=== PATIENT | female | born 1990 | race Caucasian/White ===

== ENCOUNTER 2017-10-07 09:53 | Inpatient (IN) | payer BC ==
[~2017-10-07] VITALS: Ht 157.5 cm; Wt 55.0 kg
[2017-10-07 09:56] VITALS: BP 106/68; PULSE 104; RESP 22; TEMP 98.7; O2SAT 99
[2017-10-07] MEDS ORDERED: SODIUM CHLOR 0.9% 1000 ML INJ 1,000 ML IV SCH ×2 (11:25→20:00)
[2017-10-07] MEDS ORDERED: MORPHINE SULFATE 4 MG/ML INJ IV PUSH ONE (11:30)
[2017-10-07] MEDS ORDERED: SODIUM CHLORIDE 0.9% FLUSH 10 ML FLUSH IV FLUSH PRN ×2 (11:30→18:00)
[2017-10-07] MEDS ORDERED: DEXAMETHASONE SOD PHOS 20 MG/5 ML VIAL IV PUSH ONE (11:30)
--- NOTE | 2017-10-07 11:59 | PD ---
Data Data Last Documented VS Vital Signs Date Time Temp Pulse Resp B/P (MAP) Pulse Ox O2 Delivery O2 Flow Rate FiO2 10/07/17 09:56 98.7 104 22 106/68 (81) 99 Orders Orders Complete Blood Count With Diff (10/07/17 11:25) Comprehensive Metabolic Panel (10/07/17 11:25) Lactic Acid (10/07/17 11:25) Prothrombin Time / Inr (Pt) (10/07/17 11:25) Act Partial Throm Time (Ptt) (10/07/17 11:25) Urinalysis - C+S If Indicated (10/07/17 11:25) Iv Access Insert/Monitor (10/07/17 11:25) Ecg Monitoring (10/07/17 11:25) Oximetry (10/07/17 11:25) NPO (10/07/17 11:25) Morphine Inj (Morphine Inj) (10/07/17 11:30) Sodium Chlor 0.9% 1000 Ml Inj (Ns 1000 M (10/07/17 11:25) Sodium Chloride 0.9% Flush (Ns Flush) (10/07/17 11:30) Chest, Single Ap (10/07/17 11:25) Ct Soft Tiss Neck W Iv Cont (10/07/17 11:25) Dexamethasone Inj (Decadron Inj) (10/07/17 11:30) Ed Urine Pregnancytest Poc (10/07/17 11:27) Labs Laboratory Tests Test 10/07/17 11:45 MDM Supervised Visit with YOCASTA: Yes Narrative Course The history, exam, and medical decision-making in the associated mid-level provider note were completed with my assistance. I reviewed and agree with the findings presented. I attest that I had a [id number] encounter with the patient on the same day, and personally performed and documented my assessment and findings in the medical record. *My assessment and Findings: 27-year-old woman with asymmetric swelling in the left side of her throat this is consistent with lymphadenopathy the left. She looks well. She states she was around a cat but the swelling started before that. She had cat scratch disease in the past. Is otherwise healthy. She has Crohn's disease. No other medical history. No definite sick contacts. No pharyngitis symptoms. Pain with swallowing and severe pain at baseline, no breathing or respiratory difficulties. No definite fevers although she has low-grade fever here. On exam she is a lot of tenderness and a swollen gland in the anus is probably lymphadenitis, possibly cat scratch. She looks well. Will check labs, CT imaging, steroids, likely antibiotics and outpatient follow-up. Rod Dillon MD October 07, 2017 11:59
--- NOTE | 2017-10-07 12:02 | PD ---
HPI Chief Complaint: Edema Time Seen by Provider: 11:23 Travel History International Travel<30 days: No Contact w/Intl Traveler<30days: No Traveled to known affect area: No History of Present Illness HPI 27-year-old female presents emergency department with approximately 1- 1/2 week history of left sided neck pain and swelling, which he describes as a gland, that has gotten progressively worse in the last 72 hours. Patient denies significant fever, but has pain with swallowing, however she is speaking in full sentences. Patient has had a recent exposure to kitten although she states the swelling was there prior to that exposure. She denies dental pain, or upper respiratory symptoms. She has no sore throat. She had her tonsils removed at 14. She has no chest pain or shortness of breath. Pain is currently 10 out of 10 and worse with movement or palpation of the area. She denies drug use. She denies . She has no known drug allergies. PFSH Past Medical History ?: Not LMP: 09/16/17 Social History Alcohol Use: Yes Tobacco Use: No Substance Use: No Allergies-Medications (Allergen,Severity, Reaction): Coded Allergies: No Known Allergies (Unverified , 10/07/17) Review of Systems Except as stated in HPI: all other systems reviewed are Neg General / Constitutional: No: Fever Eyes: No: Visual changes HENT: Positive: Neck Stiffness, Neck Pain, Masses, No: Headaches, Vertigo, Lightheadedness, Sore Throat, Rhinitis, Rhinorrhea, Congestion, Nosebleed, Gingival Bleeding, Dental Difficulties, Ear Discharge, Earache Cardiovascular: No: Chest Pain or Discomfort Respiratory: No: Cough, Shortness of Breath, Wheezing Gastrointestinal: No: Nausea, Vomiting, Diarrhea, Abdominal Pain Genitourinary: No: Urgency, Frequency, Dysuria Musculoskeletal: No: Pain Skin: No Rash Neurologic: No: Weakness Psychiatric: No: Depression Endocrine: No: Polydipsia Hematologic/Lymphatic: No: Easy Bruising Physical Exam Narrative GENERAL: Patient is very anxious and in moderate distress. SKIN: Warm and dry. Normal color. Normal turgor. No erythema. No rash. HEAD: Atraumatic. Normocephalic. EYES: Pupils equal and round. No scleral icterus. No injection or drainage. ENT: No nasal bleeding or discharge. Mucous membranes pink and moist. Posterior pharynx appears normal without significant swelling, uvula is midline. Airway is patent. NECK: Trachea midline. Patient is tender swollen anterior lymph node on the left side consistent with lymphadenitis. No signs of Willard's angina. CARDIOVASCULAR: Regular rate and rhythm. RESPIRATORY: No accessory muscle use. Clear to auscultation. Breath sounds equal bilaterally. GASTROINTESTINAL: Abdomen soft, non-tender, nondistended. Hepatic and splenic margins not palpable. MUSCULOSKELETAL: Extremities without clubbing, cyanosis, or edema. No obvious deformities. NEUROLOGICAL: Awake and alert. No obvious cranial nerve deficits. Motor grossly within normal limits. Five out of 5 muscle strength in the arms and legs. Normal speech. PSYCHIATRIC: Appropriate mood and affect; insight and judgment normal. Data Data Last Documented VS Vital Signs Date Time Temp Pulse Resp B/P (MAP) Pulse Ox O2 Delivery O2 Flow Rate FiO2 10/07/17 16:15 101 18 112/64 (80) 98 10/07/17 11:45 Room Air 10/07/17 09:56 98.7 Orders Orders Complete Blood Count With Diff (10/07/17 11:25) Comprehensive Metabolic Panel (10/07/17 11:25) Lactic Acid (10/07/17 11:25) Prothrombin Time / Inr (Pt) (10/07/17 11:25) Act Partial Throm Time (Ptt) (10/07/17 11:25) Urinalysis - C+S If Indicated (10/07/17 11:25) Iv Access Insert/Monitor (10/07/17 11:25) Ecg Monitoring (10/07/17 11:25) Oximetry (10/07/17 11:25) NPO (10/07/17 11:25) Morphine Inj (Morphine Inj) (10/07/17 11:30) Sodium Chlor 0.9% 1000 Ml Inj (Ns 1000 M (10/07/17 11:25) Sodium Chloride 0.9% Flush (Ns Flush) (10/07/17 11:30) Chest, Single Ap (10/07/17 11:25) Ct Soft Tiss Neck W Iv Cont (10/07/17 11:25) Dexamethasone Inj (Decadron Inj) (10/07/17 11:30) Ed Urine Pregnancytest Poc (10/07/17 11:27) Azithromycin (Zithromax) (10/07/17 12:45) Iohexol 350 Inj (Omnipaque 350 Inj) (10/07/17 14:24) Ketorolac Inj (Toradol Inj) (10/07/17 15:30) Blood Culture (10/07/17 17:06) Ampicillin-Sulbactam Inj (Unasyn Inj) (10/07/17 17:15) Consult Infectious Disease (10/07/17 ) Consult Ent (10/07/17 ) Labs Laboratory Tests Test 10/07/17 11:45 10/07/17 13:10 White Blood Count 13.3 TH/MM3 Red Blood Count 4.71 MIL/MM3 Hemoglobin 14.0 GM/DL Hematocrit 40.8 % Mean Corpuscular Volume 86.5 FL Mean Corpuscular Hemoglobin 29.7 PG Mean Corpuscular Hemoglobin Concent 34.3 % Red Cell Distribution Width 13.9 % Platelet Count 176 TH/MM3 Mean Platelet Volume 10.2 FL Neutrophils (%) (Auto) 74.8 % Lymphocytes (%) (Auto) 17.8 % Monocytes (%) (Auto) 6.8 % Eosinophils (%) (Auto) 0.2 % Basophils (%) (Auto) 0.4 % Neutrophils # (Auto) 9.9 TH/MM3 Lymphocytes # (Auto) 2.4 TH/MM3 Monocytes # (Auto) 0.9 TH/MM3 Eosinophils # (Auto) 0.0 TH/MM3 Basophils # (Auto) 0.1 TH/MM3 CBC Comment DIFF FINAL Differential Comment Prothrombin Time 10.0 SEC Prothromb Time International Ratio 1.0 RATIO Activated Partial Thromboplast Time 28.9 SEC Blood Urea Nitrogen 8 MG/DL Creatinine 0.86 MG/DL Random Glucose 87 MG/DL Total Protein 7.9 GM/DL Albumin 3.4 GM/DL Calcium Level 8.7 MG/DL Alkaline Phosphatase 80 U/L Aspartate Amino Transf (AST/SGOT) 16 U/L Alanine Aminotransferase (ALT/SGPT) 38 U/L Total Bilirubin 0.2 MG/DL Sodium Level 141 MEQ/L Potassium Level 3.9 MEQ/L Chloride Level 105 MEQ/L Carbon Dioxide Level 27.8 MEQ/L Anion Gap 8 MEQ/L Estimat Glomerular Filtration Rate 80 ML/MIN Lactic Acid Level 0.7 mmol/L Urine Color LIGHT-YELLOW Urine Turbidity CLEAR Urine pH 7.0 Urine Specific [place] 1.009 Urine Protein NEG mg/dL Urine Glucose (UA) NEG mg/dL Urine Ketones 10 mg/dL Urine Occult Blood NEG Urine Nitrite NEG Urine Bilirubin NEG Urine Urobilinogen LESS THAN 2.0 MG/DL Urine Leukocyte Esterase NEG Urine WBC LESS THAN 1 /hpf Urine Squamous Epithelial Cells 3 /hpf Microscopic Urinalysis Comment CULT NOT INDICATED MDM Medical Decision Making Medical Screen Exam Complete: Yes Emergency Medical Condition: Yes Differential Diagnosis Neck pain. Abscess. Lymphadenitis. Possible cat scratch fever. Narrative Course Patient is anxious but appears medically stable. Airway appears stable at time of exam. Labs ordered including CBC, CMP, coagulation studies, urinalysis, urine . CT of the soft tissues of the neck with IV contrast is ordered as well as chest x-ray. IV access is obtained the patient is given 4 mg morphine IV as well as 10 mg Decadron IV. Patient is given a 1000 mL normal saline bolus. Patient is discussed with and examined by Dr. Dillon. CBC shows slight leukocytosis of 13.3. Coagulation studies are unremarkable. CMP is unremarkable. Lactic acid is 0.7. Chest x-ray shows no acute cardiopulmonary process. CT scan shows: CONCLUSION: 1. Extensive inflammatory changes in the left neck with subcutaneous stranding. Abnormal signal is also seen in the anterior muscle belly of the sternocleidomastoid muscle. Findings are characteristic of a cellulitis and regional myositis. 2. Associated adenopathy with enlarged and partially necrotic nodes in the left cervical lymph node chain. 3. Benign-appearing retention cyst in the right maxillary antra. Patient and findings are reviewed with Dr. Lay. Blood cultures are ordered. Patient is given 3 g Unasyn IV. Calls placed to the hospitalist for admission, as well as infectious disease, and ENT consult ordered. Diagnosis Primary Impression: Cellulitis of neck Additional Impressions: Acute lymphangitis of neck Myositis Qualified Codes: M60.9 - Myositis, unspecified Admitting Information Admitting Physician Requests: Observation Condition: Stable Paddy Prince October 07, 2017 12:02
[2017-10-07 12:08] LABS: AUTOMATED NEUTROPHIL # 9.9 TH/MM3 (1.8-7.7); BASOPHIL # 0.1 TH/MM3 (0-0.2); BASOPHIL % 0.4 % (0.0-2.0); EOSINOPHIL % 0.2 % (0.0-4.0); HEMATOCRIT 40.8 % (35.0-46.0); LYMPH % 17.8 % (9.0-44.0); LYMPHOCYTE # 2.4 TH/MM3 (1.0-4.8); MEAN CELL VOLUME 86.5 FL (80.0-100.0); MEAN CORPUSCULAR HEMOGLOBIN 29.7 PG (27.0-34.0); MEAN CORPUSCULAR HGB CONC 34.3 % (32.0-36.0); MEAN PLATELET VOLUME 10.2 FL (7.0-11.0); MONO % 6.8 % (0.0-8.0); MONOCYTE # 0.9 TH/MM3 (0-0.9); NEUT % 74.8 % (16.0-70.0); PLATELET COUNT 176 TH/MM3 (150-450); RED BLOOD COUNT 4.71 MIL/MM3 (4.00-5.30); RED CELL DISTRIBUTION WIDTH 13.9 % (11.6-17.2); WHITE BLOOD COUNT 13.3 TH/MM3 (4.0-11.0)
[2017-10-07 12:25] LABS: ALBUMIN 3.4 GM/DL (3.4-5.0); ALT (GPT) 38 U/L (10-53); AST (GOT) 16 U/L (15-37); BICARBONATE 27.8 MEQ/L (21.0-32.0); BLOOD UREA NITROGEN 8 MG/DL (7-18); CALCIUM 8.7 MG/DL (8.5-10.1); CHLORIDE 105 MEQ/L (98-107); CREATININE 0.86 MG/DL (0.50-1.00); GLOMERULAR FILTRATION RATE 80 ML/MIN (>89); GLUCOSE,RANDOM 87 MG/DL (74-106); SODIUM (NA) 141 MEQ/L (136-145)
[2017-10-07 12:27] LABS: ALKALINE PHOSPHATASE 80 U/L (45-117); TOTAL BILIRUBIN ADULT 0.2 MG/DL (0.2-1.0); TOTAL PROTEIN 7.9 GM/DL (6.4-8.2)
--- NOTE | 2017-10-07 12:42 | RADRPT ---
EXAM DATE: 10/07/2017 12:28 PM EDT AGE/SEX: 27 years / Female INDICATIONS: Difficulty breathing and swollen neck. CLINICAL DATA: This is the patient's initial encounter. Patient reports that signs and symptoms have been present for 2 days and indicates a pain score of 4/10. MEDICAL/SURGICAL HISTORY: None. None. COMPARISON: No prior [facility] exams available for comparison. FINDINGS: A single AP view of the chest demonstrates the lungs to be symmetrically aerated without evidence of mass, infiltrate or effusion. The cardiomediastinal contours are unremarkable. Osseous structures a re intact. CONCLUSION: 1. No acute cardiopulmonary disease. Electronically signed by: Johnny Smith MD 10/07/2017 12:41 PM EDT
[2017-10-07] MEDS: AZITHROMYCIN 250 MG TAB PO SCH (13:02)
[2017-10-07 14:10] LABS: BILIRUBIN, URINE NEG (NEG); BLOOD, URINE NEG (NEG); GLUCOSE,URINE NEG (NEG); KETONE, URINE 10 mg/dL (NEG); NITRITE,URINE NEG (NEG); SQUAMOUS EPITHELIAL CELL URINE 3 /hpf (0-5); URINE COLOR LIGHT-YELLOW (YELLW/STRAW); URINE LEUKOCYTE ESTERASE NEG (NEG)
[2017-10-07] MEDS ORDERED: IOHEXOL 350 MG/ML 10 ML VIAL (for RAD DIAG) IVCONTRAST ONE (14:24)
[2017-10-07] MEDS ORDERED: KETOROLAC TROMETHAMINE 30 MG/ML (IVP) VIAL IV PUSH ONE (15:30)
[2017-10-07 16:15] VITALS: BP 112/64; PULSE 101; RESP 18; O2SAT 98
--- NOTE | 2017-10-07 16:51 | RADRPT ---
EXAM DATE: 10/07/2017 2:30 PM EDT AGE/SEX: 27 years / Female INDICATIONS: Left neck swelling and pain for 1 week CLINICAL DATA: This is the patient's initial encounter. Patient reports that signs and symptoms have been present for 1 week and indicates a pain score of 10/10. MEDICAL/SURGICAL HISTORY: None. None. RADIATION DOSE: 12.80 CTDI (mGy) COMPARISON: No prior [facility] exams available for comparison. TECHNIQUE: Helical acquisition was performed using a multirow detector CT scanner during the adminis tration of 70 ml Omnipaque 350 (iohexol) nonionic water-soluble contrast as a single exam dose. Usi ng automated exposure control and adjustment of the mA and/or kV according to patient size, radiation dose was kept as low as reasonably achievable to obtain optimal diagnostic quality images. FINDINGS: Nasopharynx: The nasopharyngeal airway has a normal configuration. No mucosal thickening or mass is seen. Oropharynx: The intrinsic muscles of the tongue are symmetric. The tonsillar pillars are intact. T he prevertebral soft tissues are not thickened. Larynx: The supraglottic, glottic, and infraglottic structures are intact. Parapharyngeal: The parapharyngeal space is intact. Salivary Glands: The parotid and submandibular glands are intact. Lymph Nodes: Multiple enlarged and partially necrotic lymph nodes are seen in the left anterior cerv ical chain. Thyroid: Homogeneous enhancement without evidence of nodule. Bones: Unremarkable. Post Contrast: No abnormal areas of enhancement seen. Miscellaneous: Extensive edema is identified in subcutaneous tissues of the left neck. This stranding extends into the adjacent sternocleidomastoid muscle as well. CONCLUSION: 1. Extensive inflammatory changes in the left neck with subcutaneous stranding. Abnormal signal is a lso seen in the anterior muscle belly of the sternocleidomastoid muscle. Findings are characteristic of a cellulitis and regional myositis. 2. Associated adenopathy with enlarged and partially necrotic nodes in the left cervical lymph node chain. 3. Benign-appearing retention cyst in the right maxillary antra. Electronically signed by: Jose Dale MD 10/07/2017 4:50 PM EDT
[2017-10-07] MEDS ORDERED: AMPICILLIN-SULBACTAM INJ 3 GM in SODIUM CHLORIDE 0.9% INJ 100 ML IV ONE (17:15)
[2017-10-07] MEDS ORDERED: LACTULOSE SYRUP 20 GM/30 ML CUP PO PRN (18:00)
[2017-10-07] MEDS ORDERED: NALOXONE HCL 0.4 MG/ML AMP IV PUSH PRN ×2 (18:00)
[2017-10-07] MEDS ORDERED: BISACODYL 10 MG SUPP RECTAL PRN (18:00)
[2017-10-07] MEDS ORDERED: MAGNESIUM HYDROXIDE SUSP 30 ML CUP PO PRN (18:00)
[2017-10-07] MEDS ORDERED: MORPHINE SULFATE 2 MG/ML SYRINGE IV PUSH PRN ×3 (18:00)
[2017-10-07] MEDS ORDERED: SENNOSIDES 8.6 MG TAB PO PRN (18:00)
--- NOTE | 2017-10-07 18:59 | HHI.HP ---
[facility] Primary Care Physician No Primary Care Physician Admission Diagnosis Left Neck Cellulitis/Myocitis/Lymphangitis Diagnoses: Travel History International Travel<30 Days: No Contact w/Intl Traveler <30 Da: No Traveled to Known Affected Are: No History of Present Illness 27-year-old female with reported history of Crohn's disease who presents with a three-week history of left neck pain and swelling. It initially started 3 weeks ago, began to get better, and then 1-1/2 weeks ago returned, having become worse in the past 3 days. Pain is described as severe constant left neck pain, nonradiating. Patient denies any sick contacts. She reports difficulty swallowing. She denies any fevers or chills. She does report a 1 day history of feeling short of breath. Denies any chest pain. Denies any nausea or vomiting. Review of Systems Except as stated in HPI: all other systems reviewed are Neg Past Family Social History Past Medical History Patient reports chronic history of Crohn's disease. Past Surgical History Cholecystectomy Tonsillectomy. Adenoidectomy Appendectomy Reported Medications Not on medications. Allergies: Coded Allergies: No Known Allergies (Unverified , 10/07/17) Family History Parents are healthy Social History Non-smoker. Nondrinker. Patient reports acid use 1 month ago. Denies any illicit drugs. Physical Exam Vital Signs Vital Signs Date Time Temp Pulse Resp B/P (MAP) Pulse Ox O2 Delivery O2 Flow Rate FiO2 10/07/17 16:15 101 18 112/64 (80) 98 10/07/17 11:45 100 Room Air 10/07/17 09:56 98.7 104 22 106/68 (81) 99 Physical Exam GENERAL: This is a well-nourished, well-developed patient, who appears to be in pain. She is alert and oriented 3. SKIN: No rashes, ecchymoses or lesions. Cool and dry. HEAD: Atraumatic. Normocephalic. No temporal or scalp tenderness. EYES: Pupils equal round and reactive. Extraocular motions intact. No scleral icterus. No injection or drainage. ENT: Nose without bleeding, purulent drainage or septal hematoma. Throat without erythema, tonsillar hypertrophy or exudate. Uvula midline. Airway patent. NECK: Trachea midline. No JVD. Left neck fullness, no erythema, left anterior cervical fullness, tenderness. CARDIOVASCULAR: Regular rate and rhythm without murmurs, gallops, or rubs. RESPIRATORY: Clear to auscultation. Breath sounds equal bilaterally. No wheezes , rales, or rhonchi. GASTROINTESTINAL: Abdomen soft, non-tender, nondistended. No hepato-splenomegaly , or palpable masses. No guarding. MUSCULOSKELETAL: Extremities without clubbing, cyanosis, or edema. No joint tenderness, effusion, or edema noted. No calf tenderness. Negative Homans sign bilaterally. NEUROLOGICAL: Awake and alert. Cranial nerves II through XII intact. Motor and sensory grossly within normal limits. Five out of 5 muscle strength in all muscle groups. Normal speech. Laboratory Laboratory Tests Test 10/07/17 11:45 10/07/17 13:10 White Blood Count 13.3 Red Blood Count 4.71 Hemoglobin 14.0 Hematocrit 40.8 Mean Corpuscular Volume 86.5 Mean Corpuscular Hemoglobin 29.7 Mean Corpuscular Hemoglobin Concent 34.3 Red Cell Distribution Width 13.9 Platelet Count 176 Mean Platelet Volume 10.2 Neutrophils (%) (Auto) 74.8 Lymphocytes (%) (Auto) 17.8 Monocytes (%) (Auto) 6.8 Eosinophils (%) (Auto) 0.2 Basophils (%) (Auto) 0.4 Neutrophils # (Auto) 9.9 Lymphocytes # (Auto) 2.4 Monocytes # (Auto) 0.9 Eosinophils # (Auto) 0.0 Basophils # (Auto) 0.1 CBC Comment DIFF FINAL Differential Comment Prothrombin Time 10.0 Prothromb Time International Ratio 1.0 Activated Partial Thromboplast Time 28.9 Blood Urea Nitrogen 8 Creatinine 0.86 Random Glucose 87 Total Protein 7.9 Albumin 3.4 Calcium Level 8.7 Alkaline Phosphatase 80 Aspartate Amino Transf (AST/SGOT) 16 Alanine Aminotransferase (ALT/SGPT) 38 Total Bilirubin 0.2 Sodium Level 141 Potassium Level 3.9 Chloride Level 105 Carbon Dioxide Level 27.8 Anion Gap 8 Estimat Glomerular Filtration Rate 80 Lactic Acid Level 0.7 Urine Color LIGHT-YELLOW Urine Turbidity CLEAR Urine pH 7.0 Urine Specific [place] 1.009 Urine Protein NEG Urine Glucose (UA) NEG Urine Ketones 10 Urine Occult Blood NEG Urine Nitrite NEG Urine Bilirubin NEG Urine Urobilinogen LESS THAN 2.0 Urine Leukocyte Esterase NEG Urine WBC LESS THAN 1 Urine Squamous Epithelial Cells 3 Microscopic Urinalysis Comment CULT NOT INDICATED Urine Opiates Screen POS Urine Barbiturates Screen NEG Urine Amphetamines Screen NEG Urine Benzodiazepines Screen NEG Urine Cocaine Screen NEG Urine Cannabinoids Screen POS Date/Time Source Procedure Growth Status 10/07/17 17:25 Blood Peripheral Aerobic Blood Culture Pending Received 10/07/17 17:25 Blood Peripheral Anaerobic Blood Culture Pending Received Result Diagram: 10/07/17 1145 10/07/17 1145 Imaging Last Impressions Neck CT 10/07/17 1125 Signed Impressions: CONCLUSION: 1. Extensive inflammatory changes in the left neck with subcutaneous stranding . Abnormal signal is also seen in the anterior muscle belly of the sternocleido mastoid muscle. Findings are characteristic of a cellulitis and regional myosit is. 2. Associated adenopathy with enlarged and partially necrotic nodes in the lef t cervical lymph node chain. 3. Benign-appearing retention cyst in the right maxillary antra. Chest X-Ray 10/07/17 1125 Signed Impressions: CONCLUSION: 1. No acute cardiopulmonary disease. Caprini VTE Risk Assessment Caprini VTE Risk Assessment: No/Low Risk (score <= 1) Caprini Risk Assessment Model Point Value = 1 Point Value = 2 Point Value = 3 Point Value = 5 Age 41-60 Minor surgery BMI > 25 kg/m2 Swollen legs Varicose veins or History of unexplained or recurrent spontaneous Oral contraceptives or hormone replacement Sepsis (< 1 month) Serious lung disease, including pneumonia (< 1 month) Abnormal pulmonary function Acute myocardial infarction Congestive heart failure (< 1 month) History of inflammatory bowel disease Medical patient at bed rest Age 61-74 Arthroscopic surgery Major open surgery (> 45 min) Laparoscopic surgery (> 45 min) Malignancy Confined to bed (> 72 hours) Immobilizing plaster cast Central venous access Age >= 75 History of VTE Family history of VTE Factor V Leiden Prothrombin [id number] Lupus anticoagulant Anticardiolipin antibodies Elevated serum homocysteine Heparin-induced thrombocytopenia Other congenital or acquired thrombophilia Stroke (< 1 month) Elective arthroplasty Hip, pelvis, or leg fracture Acute spinal cord injury (< 1 month) Prophylaxis Regimen Total Risk Factor Score Risk Level Prophylaxis Regimen 0-1 Low Early ambulation 2 Moderate Order ONE of the following: *Sequential Compression Device (SCD) *Heparin 5000 units SQ BID 3-4 Higher Order ONE of the following medications: *Heparin 5000 units SQ TID *Enoxaparin/Lovenox 40 mg SQ daily (WT < 150 kg, CrCl > 30 mL/min) *Enoxaparin/Lovenox 30 mg SQ daily (WT < 150 kg, CrCl > 10-29 mL/min) *Enoxaparin/Lovenox 30 mg SQ BID (WT < 150 kg, CrCl > 30 mL/min) AND/OR *Sequential Compression Device (SCD) 5 or more Highest Order ONE of the following medications: *Heparin 5000 units SQ TID (Preferred with Epidurals) *Enoxaparin/Lovenox 40 mg SQ daily (WT < 150 kg, CrCl > 30 mL/min) *Enoxaparin/Lovenox 30 mg SQ daily (WT < 150 kg, CrCl > 10-29 mL/min) *Enoxaparin/Lovenox 30 mg SQ BID (WT < 150 kg, CrCl > 30 mL/min) AND *Sequential Compression Device (SCD) Assessment and Plan Assessment and Plan //Sepsis on admission //Left neck cellulitis/myositis/lymphangitis = Leukocytosis, tachycardia = CT neck reviewed = Lactate 0.7. Blood cultures pending. Continue antibiotics as per infectious disease/ENT. Appreciate assistance. //History of acid use 1 month ago. Patient counseled on cessation. Denies IV drug use. Discussed Condition With Patient, nurse, ED physician. Physician Certification 2 Midnight Certification Type: Admission for Inpatient Services Order for Inpatient Services The services are ordered in accordance with Medicare regulations or non- Medicare payer requirements, as applicable. In the case of services not specified as inpatient-only, they are appropriately provided as inpatient services in accordance with the 2-midnight benchmark. Estimated LOS (days): 2 days is the estimated time the patient will need to remain in the hospital, assuming treatment plan goals are met and no additional complications. Post-Hospital Plan: Home Royal Law MD October 07, 2017 18:59
[2017-10-07] MEDS ORDERED: Vancomycin Consult Pharmacy 1 EA OTHER SCH (19:00)
[2017-10-07] MEDS ORDERED: VANCOMYCIN INJ 1,000 MG in SODIUM CHLOR 0.9% 250 ML INJ 250 ML IV ONE (20:00)
[2017-10-07] MEDS: SODIUM CHLORIDE 0.9% FLUSH 10 ML FLUSH IV FLUSH SCH (21:00)
[2017-10-07 21:12] VITALS: BP 120/90; PULSE 100; RESP 16; O2SAT 100
[2017-10-07] MEDS: DEXAMETHASONE SOD PHOS 4 MG/ML VIAL IV PUSH SCH (21:21)
[2017-10-07] MEDS: D5-1/2 NS + KCL 20 MEQ INJ 1,000 ML IV SCH (21:21)
[2017-10-08] MEDS ORDERED: MORPHINE SULFATE 4 MG/ML INJ IV PUSH PRN ×2 (00:45)
[2017-10-08] MEDS: MORPHINE SULFATE 4 MG/ML INJ IV PUSH PRN ×6 (01:02→23:54)
[2017-10-08] MEDS: AMPICILLIN-SULBACTAM INJ 3 GM in SODIUM CHLORIDE 0.9% INJ 100 ML IV SCH ×5 (01:07→23:47)
[2017-10-08 01:52] VITALS: BP 123/86; PULSE 83; RESP 16; O2SAT 100
[2017-10-08] MEDS: D5-1/2 NS + KCL 20 MEQ INJ 1,000 ML IV SCH ×3 (04:00→16:10)
[2017-10-08] MEDS: DEXAMETHASONE SOD PHOS 4 MG/ML VIAL IV PUSH SCH ×5 (06:37→23:46)
[2017-10-08 06:45] VITALS: BP 112/68; PULSE 63; RESP 16; TEMP 99.2; O2SAT 99
[2017-10-08 07:45] LABS: AUTOMATED NEUTROPHIL # 11.9 TH/MM3 (1.8-7.7); BASOPHIL % 0.2 % (0.0-2.0); HEMOGLOBIN 13.1 GM/DL (11.6-15.3); LYMPH % 11.6 % (9.0-44.0); LYMPHOCYTE # 1.7 TH/MM3 (1.0-4.8); MEAN CELL VOLUME 86.2 FL (80.0-100.0); MEAN CORPUSCULAR HGB CONC 33.7 % (32.0-36.0); MEAN PLATELET VOLUME 9.9 FL (7.0-11.0); MONO % 7.5 % (0.0-8.0); MONOCYTE # 1.1 TH/MM3 (0-0.9); NEUT % 80.7 % (16.0-70.0); PLATELET COUNT 182 TH/MM3 (150-450); RED BLOOD COUNT 4.52 MIL/MM3 (4.00-5.30); RED CELL DISTRIBUTION WIDTH 13.6 % (11.6-17.2); WHITE BLOOD COUNT 14.7 TH/MM3 (4.0-11.0)
[2017-10-08] MEDS ORDERED: VANCOMYCIN INJ 750 MG in SODIUM CHLOR 0.9% 250 ML INJ 250 ML IV SCH (08:00)
[2017-10-08 08:10] LABS: ALBUMIN 3.3 GM/DL (3.4-5.0); AST (GOT) 128 U/L (15-37); BICARBONATE 22.8 MEQ/L (21.0-32.0); BLOOD UREA NITROGEN 8 MG/DL (7-18); CALCIUM 9.1 MG/DL (8.5-10.1); CHLORIDE 108 MEQ/L (98-107); CREATININE 0.68 MG/DL (0.50-1.00); GLOMERULAR FILTRATION RATE 105 ML/MIN (>89); GLUCOSE,RANDOM 83 MG/DL (74-106); SODIUM (NA) 140 MEQ/L (136-145)
[2017-10-08 08:29] LABS: ALKALINE PHOSPHATASE 98 U/L (45-117); ALT (GPT) 159 U/L (10-53); TOTAL BILIRUBIN ADULT 0.3 MG/DL (0.2-1.0); TOTAL PROTEIN 7.8 GM/DL (6.4-8.2)
[2017-10-08] MEDS: SODIUM CHLORIDE 0.9% FLUSH 10 ML FLUSH IV FLUSH SCH ×2 (09:00→21:00)
[2017-10-08 09:20] VITALS: BP 108/58; PULSE 65; RESP 18; TEMP 96.5; O2SAT 97
--- NOTE | 2017-10-08 10:27 | HHI.PR ---
Subjective Remarks Patient says that swelling is improving, reports swallowing improved. Denies any chest pain or shortness of breath. Denies nausea or vomiting. Objective Vital Signs Date Time Temp Pulse Resp B/P (MAP) Pulse Ox O2 Delivery O2 Flow Rate FiO2 10/08/17 09:20 96.5 65 18 108/58 (75) 97 10/08/17 06:45 99.2 63 16 112/68 (83) 99 Room Air 10/08/17 01:52 83 16 123/86 (98) 100 Room Air 10/07/17 21:12 100 16 120/90 (100) 100 Room Air 10/07/17 16:15 101 18 112/64 (80) 98 10/07/17 11:45 100 Room Air I/O 10/07/17 10/07/17 10/07/17 10/08/17 10/08/17 10/08/17 07:00 15:00 23:00 07:00 15:00 23:00 Intake Total 1000 ml 100 ml 100 ml Balance 1000 ml 100 ml 100 ml Intake IV Total 1000 ml 100 ml 100 ml # Voids 1 1 Result Diagram: 10/08/17 0730 10/08/17 0730 Objective Remarks GENERAL: Patient lying in bed. Appears comfortable. Alert and oriented 3. SKIN: Warm and dry. HEAD: Normocephalic. EYES: No scleral icterus. No injection or drainage. NECK: Supple, trachea midline. No JVD. Still marketed left anterior cervical swelling, tenderness, however improved from yesterday. CARDIOVASCULAR: Regular rate and rhythm without murmurs, gallops, or rubs. RESPIRATORY: Breath sounds equal bilaterally. No accessory muscle use. GASTROINTESTINAL: Abdomen soft, non-tender, nondistended. MUSCULOSKELETAL: No cyanosis, or edema. BACK: Nontender without obvious deformity. No CVA tenderness. A/P Assessment and Plan //Sepsis on admission //Left neck cellulitis/myositis/lymphangitis = Leukocytosis, tachycardia = CT neck reviewed = Lactate 0.7. Blood cultures pending. Continue antibiotics as per infectious disease/ENT. Appreciate assistance. = 10/08. Blood cultures negative today. Leukocytosis worsening 14.7, however likely secondary to steroids. neck swelling improving. Continue antibiotics. //Transaminitis. = AST 128, ALT 159 no from yesterday. Will check liver ultrasound and hepatitis profile. //History of acid use 1 month ago. Patient counseled on cessation. Denies IV drug use. //Marijuana positive. Cessation counseling provided. Discharge Planning Continues on IV antibiotics for sepsis, left neck cellulitis .pending ID and ENT consultation. Royal Law MD October 08, 2017 10:27
--- NOTE | 2017-10-08 11:34 | RADRPT ---
EXAM DATE: 10/08/2017 11:27 AM EDT AGE/SEX: 27 years / Female INDICATIONS: Increased lab values. CLINICAL DATA: This is the patient's initial encounter. Patient reports that signs and symptoms have been present for 1 day and indicates a pain score of 0/10. MEDICAL/SURGICAL HISTORY: Crohn's disease. Tonsillectomy. Appendectomy. Cholecystectomy. COMPARISON: No prior [facility] exams available for comparison. MEASUREMENTS (cm x cm x cm): Liver:__ 13.2 cm length Common Bile Duct:__ 9mm Right Kidney:__ 10.5 x 5.0 x 4.7 cm FINDINGS: Liver: Normal echotexture without focal lesion or ductal dilatation. Portal Vein: Hepatopedal flow seen in portal vein. Common Duct: No intralumincal mass or stone visualized. Gallbladder: Surgically Absent. Gallbladder Wall: absent Pancreas: The visualized portions are within normal limits Right Kidney: No hydronephrosis, significant mass or stone. Normal echogenicity. Other: None. CONCLUSION: 1. Borderline splenomegaly with spleen measuring 12.6 cm. 2. Otherwise, unremarkable right upper quadrant ultrasound exam. Specifically, no sonographic eviden ce for cholelithiasis or acute cholecystitis. Electronically signed by: Johnny Smith MD 10/08/2017 11:33 AM EDT
[2017-10-08] MEDS: AZITHROMYCIN 250 MG TAB PO SCH (12:07)
--- NOTE | 2017-10-08 12:56 | MB ---
cc: Sung Mann MD DATE: 10/08/2017 REQUESTING PHYSICIAN: Dr. Prince REASON FOR CONSULTATION: Cellulitis/myositis/lymphangitis of the left neck. HISTORY OF PRESENT ILLNESS: This is a 27-year-old white female who presented to the emergency department on 10/07/2017 because of edema of the left side of the neck. The patient notes that about a week and a half ago, she woke up and had a somewhat stiff neck. Subsequently, she developed pain and swelling of the tissue of the left neck and also swelling of the left neck gland. She noticed that it was worsening over the last few days. She was also having difficulty swallowing and was not eating. She denies fevers, but said that she had occasional chills and that she would wake up in drenching night sweats. She has nausea and diarrhea on a daily basis because of underlying Crohn's disease. Her white count was 13.3. A CT scan of the neck was performed and it shows extensive inflammatory changes in the left neck with subcutaneous stranding and also abnormal signal in the anterior muscle belly of the sternocleidomastoid muscle, findings characteristic of cellulitis and regional myositis. Adenopathy with enlarged and partially necrotic nodes in the left cervical lymph node chain is noted as well. The patient notes that she took care of her kitten which she fed 3 days ago. She says that it was a baby kitten with the umbilical cord still in place and that there was no scratch from any cat. She denies IV drug use. Blood cultures were taken and has no growth in 1 day. The patient notes that she had an episode of cat-scratch disease when she was 16 years old. PAST MEDICAL HISTORY: Crohn's disease. Asthma. PAST SURGICAL HISTORY: Tonsillectomy, adenoidectomy, cholecystectomy, appendectomy. ALLERGIES: NO KNOWN DRUG ALLERGIES. MEDICATIONS: 1. Ampicillin/sulbactam. 2. Vancomycin. 3. Morphine sulfate p.r.n. 4. Decadron. SOCIAL HISTORY: The patient denies tobacco use. Occasional rare alcohol use. Denies IV use. Denies illicit drugs. FAMILY HISTORY: Noncontributory. REVIEW OF SYSTEMS: CONSTITUTIONAL: Reports chills. No fever. Positive sweats. HEENT: EYES, NOSE AND THROAT: No headaches. No visual blurring or diplopia. No nasal drainage. A little difficulty swallowing because of pain in the left neck that was worse when she swallowed. NECK: Swelling and pain at the left neck. CARDIOVASCULAR: Denies chest pain or palpitation. RESPIRATORY: Denies cough or shortness of breath. GASTROINTESTINAL: Denies abdominal pain. Positive for nausea and positive for diarrhea. GENITOURINARY: Denies urgency, frequency or dysuria. HEMATOPOIETIC: No easy bruising or bleeding. The patient notes heavy menstrual periods with increased bleeding. GENITOURINARY: Denies urgency, frequency or dysuria. MUSCULOSKELETAL: Pain in the left neck muscles. ENDOCRINE: No polyuria or polydipsia. NEUROLOGIC: Denies problems with coordination. PSYCHIATRIC: No mood alteration. PHYSICAL EXAMINATION: GENERAL: This is a thin, well-developed female in no acute distress. She is awake, alert and oriented. VITAL SIGNS: Temperature 96.5, BP 108/58, respirations 18, heart rate 65. HEENT: Head is atraumatic. Extraocular movements grossly intact. Pupils reactive to light. No icterus. Oropharynx, moist mucosa without lesions. NECK: There is swelling of the left side of the neck which is very tender on palpation. There is a raised, firm area where the swelling is located. There is mild erythema which extends from the left neck and towards about the central aspect of the anterior portion of the neck. HEART: Regular S1 and S2 without murmurs, rubs or gallops. ABDOMEN: Bowel sounds present, soft, no tenderness appreciated. RECTAL: Not performed. EXTREMITIES: No clubbing, cyanosis or edema. SKIN: No rash. NEUROLOGIC: No gross focal findings. PSYCHIATRIC: The patient is calm and cooperative. LABORATORY DATA: WBC 14.7, platelets 182, 80% neutrophils, hemoglobin 13.1, creatinine 0.68. Estimated GFR 105, AST 128, ALT 159, albumin 3.3. IMPRESSION: 1. Cellulitis of the left neck with myositis and lymphadenopathy. The lymph node is reported as necrotic. 2. 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 3. Leukocytosis secondary to cellulitis. 4. Rule out immunosuppression. The other possibility is a noninfectious cause of the lymphangitis and myositis. This is less likely. If there is lack of improvement, a biopsy of the lymph node can be considered. RECOMMENDATIONS: 1. Continue ampicillin/sulbactam. 2. Discontinue the vancomycin. 3. Begin doxycycline 100 mg p.o. q. 12 hours since it appears that the swelling has improved and the doxycycline will cover cat-scratch disease. 4. Obtain HIV testing to check for immunosuppression. 5. I will monitor clinical response to the treatment. Thank you for this consultation. The patient's progress will be monitored and further recommendations will be made upon followup if necessary. MD JAG Engle/GILLES , 12:12 PM , 12:55 PM JAD
[2017-10-08] MEDS: DOXYCYCLINE HYCLATE 100 MG TAB PO SCH ×2 (13:57→21:25)
[2017-10-08 16:00] VITALS: BP 119/74; PULSE 86; RESP 21; TEMP 98; O2SAT 99
[2017-10-08] MEDS ORDERED: ZOLPIDEM TARTRATE 5 MG TAB PO PRN (16:30)
[2017-10-08] MEDS: ONDANSETRON ODT 4 MG TAB PO PRN (18:08)
--- NOTE | 2017-10-08 18:24 | MB ---
cc: Arnold Chu MD, Anthony T MD DATE: 10/08/2017 CHIEF COMPLAINT: Left neck tenderness, pain and swelling. HISTORY OF PRESENT ILLNESS: This is a 27-year-old female who was admitted through the emergency department last night with a complaint of edema and pain to the left side of the neck. She reports that the edema has gone down somewhat, but the left side of the neck is incredibly tender and it is difficult to swallow. She noticed pain most of the night with the left neck and if you touch the left neck, it is very sensitive she said. She is unable to turn her head completely on the left side. She does report some improvement since being admitted. Of note, she did have cat-scratch disease in the past for which she was treated when she was a teenager. She also recently obtained a cat approximately 3 days ago, but she tells me that this started prior to her obtaining the kitten. She does deny any IV drug use. 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 She does not get in the water with the boats. PAST MEDICAL HISTORY: Significant for Crohn's disease and asthma. PAST SURGICAL HISTORY: Tonsillectomy and adenoidectomy, cholecystectomy and appendectomy. ALLERGIES: SHE HAS NO KNOWN DRUG ALLERGIES. MEDICATIONS: She is not currently on any medication. SOCIAL HISTORY: She denies tobacco use or illicit drug use. She does occasionally drink. PHYSICAL EXAMINATION: GENERAL: The patient is alert and oriented x3, in no acute distress. She is resting relatively comfortable in bed. She was getting an abdominal ultrasound when I walked in without much discomfort. HEENT: Nasal exam is within normal limits. Ears clear. Tympanic membranes intact. Oral cavity - oropharynx shows no edema, no masses. No swelling. Flexible laryngoscopy performed at bedside shows normal-appearing oropharynx with some hypertrophy of the lingual tonsils, but no asymmetry. No evidence of uvular deviation. No evidence of tonsillar abscess or peritonsillar abscess. The larynx is widely visualized. Airway is widely patent. NECK: Reveals significant tenderness on the left neck with a level 3 lymphadenopathy that is incredibly tender with only minimal erythema around this. IMAGING STUDIES: CT scan reviewed showed what looks to be a possible necrotic lymph node on the left with some adenopathy noted as well as some myositis and cellulitis of the sternocleidomastoid muscle and surrounding tissue. ASSESSMENT AND PLAN: A patient with what looks to be an infectious process involving the left neck. No obvious abscess for drainage. Would recommend covering for cat-scratch disease, although this is a little less likely since the process started before she obtained the cat. Would also work her up for possible other immunosuppressed such as scrofula which is neck tuberculosis or other unusual instances such as an insect bite. We will defer this to infectious disease. At this time, no surgical intervention. Should she not improve, would recommend ultrasound-guided biopsy of the left neck mass; however, that would not want to be done until the possibility of tuberculosis of the left neck or scrofula was ruled out as that could possibly cause a persistent fistula should a lesion with tuberculosis in it be biopsied. Would recommend continued IV antibiotics, per infectious disease. Arnold Chu MD ATT/SA , 05:31 PM , 06:23 PM
[2017-10-08 20:00] VITALS: BP 109/56; PULSE 80; RESP 16; TEMP 98; O2SAT 100
[2017-10-09] VITALS (7 sets, daily range): BP systolic 90–145; BP diastolic 53–88; PULSE 68–140; RESP 16–21; TEMP 97.2–98.2; O2SAT 96–100
[2017-10-09] MEDS: MORPHINE SULFATE 4 MG/ML INJ IV PUSH PRN (03:33)
[2017-10-09] MEDS ORDERED: diphenhydrAMINE HCL 25 MG CAP PO ONE (04:00)
[2017-10-09] MEDS ORDERED: ONDANSETRON ODT 4 MG TAB PO ONE (05:15)
[2017-10-09] MEDS ORDERED: LORazepam 2 MG/ML VIAL IV PUSH ONE (05:15)
--- NOTE | 2017-10-09 05:44 | HHI.FPPN ---
Addendum to progress note ADDENDUM Reason for addendum: Additonal documentation Additional information S: Art Rogers and Omar were paged at 0433 hours for a Halicat. Drs responded to bedside where Ms Brooks was sweating with body shaking uncontrollably and complaints of loss of sensation in her legs with periodic tachycardia to the 150s and LOPEZ with right-sided photophobia. Pt presented with left neck myositis and lymphadenitis and has a Hx of Crohn's disease. Pt has pain in her left neck and has complaints of pain with neck movement. Pt denies IVDU but has UDS positive for cannabis and admits to smoking pot. Pt used to take xanax PRN for anxiety months ago. Pt was caring for a kitten when she was admitted for myositis/lymphadenitis, and was notified by her boyfriend that the kitten had today and was sad about that prior to current sxs starting. Pt's HR improved to 100 prior to departing the room with cessation of chills and shaking. O: VS: T 98.2 / HR 144 / BP 137/83 / spO2 97% RA Pt HR improved to 100 prior to departing Vital Signs Date Time Temp Pulse Resp B/P (MAP) Pulse Ox O2 Delivery O2 Flow Rate FiO2 10/09/17 00:15 98.0 69 16 110/64 (79) 100 10/08/17 06:45 Room Air GENERAL: Well-nourished, well-developed patient in moderate distress and anxiety with body shaking vs involuntary muscle contractions. SKIN: Warm and dry. HEAD: Normocephalic. Atraumatic. EYES: No scleral icterus. No injection or drainage. Right sided photophobia. EOMI. NECK: TTP, tender to movement with reduced ROM. trachea midline. Lymphadenopathy on left side with swelling. CARDIOVASCULAR: Tachycardic, regular rhythm without murmurs, gallops, or rubs. RESPIRATORY: Breath sounds equal bilaterally. No accessory muscle use. GASTROINTESTINAL: Abdomen soft, TTP around umbilicus, nondistended. No rebound or guarding. EXTREMITIES: No cyanosis, or edema. Well perfused. Reduced sensation in LLE below knee and LUE. NEUROLOGICAL: Awake, alert, and oriented x 3. CN II-XII intact. Reduced sensation in LLE and LUE as above, slurred speech per pt (borderline to examiners), and photophobia as above. A/P: 27YO female with PMHx Crohn's disease with myositis and lymphadenitis of left neck, neck pain with reduced ROM, with left sided decreased sensation and slurred speech, must r/o CVA, SAH, meningitis, cerebral infection, abdominal pain from unknown source. Cannot r/o psychogenic cause. -CT head w and w/o contrast as indicated -Ativan 1 mg IV -Zofran 4mg PO -CT abdomen/pelvis with contrast -Consider LP -Consider psych consult for psychogenic etiology Carlyle Rogers MD R1 October 09, 2017 05:44
[2017-10-09] MEDS: DEXAMETHASONE SOD PHOS 4 MG/ML VIAL IV PUSH SCH ×2 (05:55→11:38)
[2017-10-09] MEDS: AMPICILLIN-SULBACTAM INJ 3 GM in SODIUM CHLORIDE 0.9% INJ 100 ML IV SCH ×2 (05:55→11:34)
--- NOTE | 2017-10-09 05:56 | RADRPT ---
EXAM DATE: 10/09/2017 5:47 AM EDT AGE/SEX: 27 years / Female INDICATIONS: Left arm numbness, slurred speech, and headache. CLINICAL DATA: This is the patient's initial encounter. Patient reports that signs and symptoms have been present for 1 day and indicates a pain score of 5/10. MEDICAL/SURGICAL HISTORY: Gastroesophageal reflux disease. . RADIATION DOSE: 56.35 CTDI (mGy) COMPARISON: No prior [facility] exams available for comparison. TECHNIQUE: CT of the head without contrast. Using automated exposure control and adjustment of the mA and/or kV according to patient size, radiation dose was kept as low as reasonably achievable to ob tain optimal diagnostic quality images. FINDINGS: Cerebrum: The ventricles are normal for age. No evidence of midline shift, mass lesion, hemorrhage or acute infarction. No extraaxial fluid collections are seen. Posterior Fossa: The cerebellum and brainstem are intact. The 4th ventricle is midline. The cerebe llopontine angle is unremarkable. Extracranial: The visualized portion of the orbits is intact. Skull: The calvaria is intact. No evidence of skull fracture. CONCLUSION: 1. Negative noncontrast head CT. Electronically signed by: John Silverman MD 10/09/2017 5:55 AM EDT
--- NOTE | 2017-10-09 05:59 | RADRPT ---
EXAM DATE: 10/09/2017 5:51 AM EDT AGE/SEX: 27 years / Female INDICATIONS: Left sided abdominal pain. CLINICAL DATA: This is the patient's initial encounter. Patient reports that signs and symptoms have been present for 1 day and indicates a pain score of 5/10. MEDICAL/SURGICAL HISTORY: Gastroesophageal reflux disease. None. ORAL CONTRAST: No oral contrast ingested. RADIATION DOSE: 6.70 CTDI (mGy) COMPARISON: No prior [facility] exams available for comparison. TECHNIQUE: Multiple contiguous axial images were obtained through the abdomen and pelvis following b olus infusion of 75 ml Omnipaque 350 (iohexol) nonionic water-soluble contrast as a single exam dos e. No oral contrast ingested. Using automated exposure control and adjustment of the mA and/or kV ac cording to patient size, the radiation dose was kept as low as reasonably achievable to obtain optima l diagnostic quality images. FINDINGS: Lower Lungs: The visualized lower lungs are clear. Liver: The liver has a homogeneous density without space-occupying lesion. Previous cholecystectomy. Mild intrahepatic and extrahepatic no area distention noted, likely reservoir effect after gallbladde r removal. Localized fatty infiltration seen adjacent to the falciform ligament.. Spleen: Homogeneous density without enlargement. Pancreas: Unremarkable without mass or calcification. Kidneys: Normal in size and shape. No evidence of mass or hydronephrosis. Adrenal Glands: Unremarkable. Aorta: The aorta and proximal iliac vessels are grossly unremarkable without aneurysmal dilation. Bowel/Mesentery: The bowel loops are grossly unremarkable. The cecum and sigmoid colon have a normal configuration. Abdominal Wall: Intact. Retroperitoneum: No evidence of adenopathy in the retrocrural, para-aortic, or deep pelvic regions. Bladder: Contours are smooth. Reproductive Organs: No abnormal masses or calcifications seen. Small, generally physiologic amount of free fluid seen in the pelvic cul-de-sac. Nothing loculated or drainable. Inguinal: The inguinal region is unremarkable without evidence of adenopathy. Bony Structures: Unremarkable. CONCLUSION: No acute abnormalities are demonstrated. Electronically signed by: John Silverman MD 10/09/2017 5:58 AM EDT
[2017-10-09] MEDS: D5-1/2 NS + KCL 20 MEQ INJ 1,000 ML IV SCH ×2 (06:02→11:34)
[2017-10-09] MEDS ORDERED: PHARMACY ORDERED LAB ONE (07:45)
[2017-10-09] MEDS: SODIUM CHLORIDE 0.9% FLUSH 10 ML FLUSH IV FLUSH SCH (09:00)
[2017-10-09] MEDS: DOXYCYCLINE HYCLATE 100 MG TAB PO SCH (09:17)
[2017-10-09] MEDS: AZITHROMYCIN 250 MG TAB PO SCH (09:18)
[2017-10-09] MEDS: ONDANSETRON ODT 4 MG TAB PO PRN (09:18)
[2017-10-09] MEDS ORDERED: ACETAMINOPHEN/HYDROcodone 325 MG/5 MG TAB PO PRN (14:30)
--- NOTE | 2017-10-09 14:56 | HHI.PR ---
Subjective Remarks DW with RN. Patient has been very uncooperative, refusing vital signs. Patient tells me she does not know what is going on. More than 15 minutes spent with the patient in the presence of medical student Karen Asif MS4 explaining her current diagnosis, the need for treatment with antibiotics, and potential need for future workup such as biopsy. Patient states she sees no difference in her neck swelling since she presented to the hospital. However per the note yesterday she reported improvement and there was also improvement noted on exam. Objective Vitals Vital Signs Date Time Temp Pulse Resp B/P (MAP) Pulse Ox O2 Delivery O2 Flow Rate FiO2 10/09/17 11:50 97.7 75 18 90/53 (65) 97 10/09/17 08:23 97.2 70 18 108/60 (76) 99 Manual Cuff/Palpation 10/09/17 05:20 98.2 120 20 140/86 (104) 99 145/88 (107) 10/09/17 04:40 97.9 140 21 137/83 (101) 97 10/09/17 04:20 97.3 105 20 128/71 (90) 96 10/09/17 04:00 98.0 70 16 119/80 (93) 100 10/09/17 00:15 98.0 69 16 110/64 (79) 100 10/08/17 20:00 98.0 80 16 109/56 (73) 100 10/08/17 16:00 98.0 86 21 119/74 (89) 99 I/O 10/08/17 10/08/17 10/08/17 10/09/17 10/09/17 10/09/17 07:00 15:00 23:00 07:00 15:00 23:00 Intake Total 100 ml 240 ml 2226 ml Balance 100 ml 240 ml 2226 ml Intake Oral 240 ml 975 ml IV Total 100 ml 1251 ml # Voids 1 4 # Bowel Movements 0 Result Diagram: 10/08/1730 10/08/17 0730 Objective Remarks GENERAL: This is a well-nourished, well-developed patient, in no apparent distress. NECK: Supple, on the left side there is minimal anterior cervical swelling. I do not appreciate any cellulitis. I did not elicit tenderness on palpation. CARDIOVASCULAR: Normal rate and regular rhythm without murmurs, gallops, or rubs. PSYCH: Irritable A/P Assessment and Plan 27-year-old female with: Sepsis on admission Left neck cellulitis/myositis/lymphangitis Leukocytosis, tachycardia CT neck noted above Continue antibiotics as per infectious disease/ENT. Appreciate assistance. If there is lack of improvement, a biopsy of the lymph node can be considered. Continue ampicillin/sulbactam and doxycycline 100 mg p.o. q. 12 hours Transaminitis. AST 128, ALT 159. Liver ultrasound unremarkable, borderline splenomegaly. Hepatitis profile negative - Follow-up LFTs in a.m. Illicit drug use: History of acid use 1 month ago. UDS on admission positive for opiates and marijuana. Patient counseled on cessation. Noncompliance behavior: Extensive counseling provided regarding the treatment. More than 15 minutes spent with the patient in the presence of medical student Karen Asif MS4 explaining her current diagnosis, the need for treatment with antibiotics, and potential need for future workup such as biopsy. Patient states she sees no difference in her neck swelling since she presented to the hospital. However per the note yesterday she reported improvement and there was also improvement noted on exam. She was strongly advised to comply with treatment. Kaity Hill MD October 09, 2017 14:56
== END 2017-10-09 16:16 | disposition left against medical advice (07) | DRG 872 ==
LOC: NEPD 09:53 → NEDA 17:49 → NEDH 10-08 07:44 → N05B 10-08 14:58
PROVIDERS: ADMIT Family Medicine; ATTEND Family Medicine
DX: A41.9 Sepsis, unspecified organism (principal); A28.1 Cat-scratch disease; K50.90 Crohn's disease, unspecified, without complications; L03.221 Cellulitis of neck; I89.1 Lymphangitis; M60.9 Myositis, unspecified; T38.0X5A Adverse effect of glucocorticoids and synthetic analogues, initial encounter; Z91.19 Patient's noncompliance with other medical treatment and regimen; R13.10 Dysphagia, unspecified; J45.909 Unspecified asthma, uncomplicated; F12.90 Cannabis use, unspecified, uncomplicated; R47.81 Slurred speech; H53.141 Visual discomfort, right eye; R74.0 Nonspecific elevation of levels of transaminase and lactic acid dehydrogenase [LDH]; Z90.49 Acquired absence of other specified parts of digestive tract
CPT/HCPCS: 70450; 70491; 71045; 74177; 76705; 80053; 80074; 80307; 81001; 82550; 82948; 83605; 84703; 85025; 85610; 85730; 87040; 87389; 96361; 96365; 96375; G0475; G8996-GN; G8997-GN; G8998-GN; J0295; J1100; J1885; J2060; J2270; J3370; J3480; J7030; J7050; Q9967

== ENCOUNTER 2018-03-31 04:21 | Observation (INO) ==
[2018-03-31] MEDS ORDERED: Sod Chloride 0.9% Inj 1,000 ML IV.SIG ONE (04:31)
--- NOTE | 2018-03-31 04:41 | ED ---
HPI General Chief Complaint: Abdominal Pain Stated Complaint: Medical Time Seen by Provider: 03/31/18 04:31 Source: patient and EMS Mode of arrival: EMS Limitations: no limitations History of Present Illness HPI narrative: 27-year-old female presents to the emergency department by EMS transport for evaluation of abdominal pain. Patient with nausea vomiting. Upon EMS evaluation patient was somnolent and was noted to have pinpoint pupils therefore was administered Narcan 0.4 mg with immediate response and improvement of LOC to a GCS of 15. Patient had episode of vomiting. Patient complained of severe abdominal pain. Patient states symptoms been present over the past few hours. No reported hematemesis coffee-ground emesis melena hematochezia no report of trauma no report of dysuria frequency urgency flank pain or hematuria. Patient denies chest pain or shortness of breath. Patient has history of IV drug abuse. Reportedly history of Crohn's disease status post cholecystectomy and appendectomy. MD complaint: Reports abdominal pain Onset (ago): hour(s) Pain Consistency: constant Location: Reports periumbilical Severity: severe Quality: Reports cramping, stabbing, aching and burning Radiation: Reports none Migration to: Reports no migration Relieving factors: nothing Exacerbating factors: nothing Context: Denies foreign travel, possible food poisoning, sick contacts, recent antibiotic use, recent surgery/procedure, recent injury and history of similar episodes Associated symptoms: Reports nausea and vomiting; Denies diarrhea, fever, chills , constipation, dysuria, hematemesis, hematochezia, melena, hematuria, anorexia and syncope Treatments prior to arrival: Reports other (narcan 0.4 mg iv); Denies NSAIDs and prescription analgesics Related Data Hx Last Menstrual Period: 2 months ago Patient : No (negative home tests) Home Medications Medication Instructions Recorded Confirmed gabapentin 300 mg PO BID 03/11/18 03/31/18 clonazepam 0.5 mg PO BID 03/31/18 03/31/18 Allergies Allergy/AdvReac Type Severity Reaction Status Date / Time No Known Allergies Allergy Verified 03/31/18 04:32 Review of Systems ROS: all other systems reviewed are negative [facility] Medical History Medical History Crohn's disease (regional enteritis) (Acute) MDRO (multiple drug resistant organisms) resistance (Acute ~03/11/18) Patient denies significant medical history (Acute) Surgical History Surgical History History of cholecystectomy (Acute) History of tonsillectomy and adenoidectomy (Acute) Hx of appendectomy (Acute) Social History Social History Substance History: Active Abuse Second Hand Smoke Exposure: Yes Smoking Status: Never smoker Tobacco Type: Cigarettes How Often Do You Have a Drink Containing Alcohol: Never Recent Travel in [facility] within the Last 8 Weeks: No Recent Out of Country Travel within the Last 8 Weeks: No Exam Narrative Exam Narrative: GENERAL: Well-nourished, well-developed patient. SKIN: Focused skin assessment warm/dry. HEAD: Normocephalic. EYES: No scleral icterus. No injection or drainage. NECK: Supple, trachea midline. No JVD or lymphadenopathy. CARDIOVASCULAR: Regular rate and rhythm without murmurs, gallops, or rubs. RESPIRATORY: Breath sounds equal bilaterally. No accessory muscle use. GASTROINTESTINAL: Abdomen soft, diffusely tender to palpation without guarding or rebound, nondistended. MUSCULOSKELETAL: No cyanosis, or edema. BACK: Nontender without obvious deformity. No CVA tenderness. Course Initial Documented Vital Signs Temperature 97.9 F 03/31/18 04:24 Pulse Rate 89 03/31/18 04:24 Respiratory Rate 14 03/31/18 04:24 Blood Pressure 134/81 03/31/18 04:24 Pulse Oximetry 98 03/31/18 04:24 Last Documented Vital Signs Temperature 97.9 F 03/31/18 04:35 Pulse Rate 89 03/31/18 04:35 Respiratory Rate 16 03/31/18 04:35 Blood Pressure 134/81 03/31/18 04:35 Pulse Oximetry 98 03/31/18 04:35 Sign Out Sign Out Data: Patient Sign Out occurred on 03/31/18 at 07:05. Patient's care was discussed, and care was transferred from Michelle Lamb MD to Channing Zepeda DO. Sign Out Comment: Care signed over to oncoming physician for follow-up of pending labs and patient disposition; 27-year-old female with history of substance abuse presents with severe abdominal pain abdomen pelvis diffusely tender with CT abdomen pelvis consistent with possible ileus and constipation no evidence of bowel obstruction no free air. Last updated by Michelle Lamb MD at 03/31/18 06:58 Medical Decision Making MDM Narrative Medical decision making narrative: IV access obtained by EMS prior to arrival to the emergency department; specimens collected and sent for resulting; patient administered IV fluids and Zofran; CT abdomen pelvis ordered; point-of- care test ordered CBC is automated differential leukocytosis 27,000 with left shift; blood cultures lactic acid ordered patient bolused with normal saline; CT abdomen pelvis pending, urinalysis and urine drug screen pending At 6:24 AM serum alcohol urine drug screen urinalysis pending CT abdomen pelvis shows a large amount of stool for possible constipation gastroenteritis/ileus but no perforation no acute inflammatory changes identified per reading radiologist CT brain noncontrast shows no acute process and chest x-ray is negative for infiltrate or acute process. White count unclear source of 27,000 with left shift lactic acid pending blood cultures have been obtained patient received presumptive dose of IV antibiotic. Disposition pending Patient care was transitioned to myself at [address] abdomen and pelvis was significant for constipation. Hemodynamically stable. Markedly elevated WBC without a specific source of infection possibly acute phase reactant. Patient will be placed under observation for further evaluation and monitoring of her CBC. Zosyn was given at point of care. Medical Screen Exam Complete: Yes Emergency Medical Condition: Yes Differential Diagnosis Differential Diagnosis: Abdominal pain, gastritis, pancreatitis, choledocholithiasis, bowel obstruction, diverticulitis, colitis, ruptured ovarian cyst, ectopic , ovarian torsion, tubo-ovarian abscess, UTI, pyelonephritis, renal colic Medical Records Medical records reviewed: Yes I reviewed the patient's medical records. Lab Data Lab results reviewed: Yes I reviewed the patient's lab results. Result diagrams: 03/31/18 04:50 03/31/18 04:50 POC Results POC Urine Results Negative Lab Results 03/31/18 03/31/18 03/31/18 Range/Units 04:50 04:50 04:50 WBC 27.7 H (4.0-11.0) th/mm3 RBC 4.78 (4.00-5.30) mil/mm3 Hgb 13.9 (11.6-15.3) gm/dL Hct 43.0 (35.0-46.0) % MCV 90.0 (80.0-100.0) fL MCH 29.2 (27.0-34.0) pg MCHC 32.4 (32.0-36.0) % RDW 13.9 (11.6-17.2) % Plt Count 172 (150-450) th/mm3 MPV 10.7 (7.0-11.0) fL Neut % (Auto) 86.2 H (16.0-70.0) % Lymph % (Auto) 8.5 L (9.0-44.0) % Bay % (Auto) 4.8 (0.0-8.0) % Eos % (Auto) 0.3 (0.0-4.0) % Baso % (Auto) 0.2 (0.0-2.0) % Neut # (Auto) 23.9 H (1.8-7.7) th/mm3 Lymph # (Auto) 2.4 (1.0-4.8) th/mm3 Bay # (Auto) 1.3 H (0.0-0.9) th/mm3 Eos # (Auto) 0.1 (0.0-0.4) th/mm3 Baso # (Auto) 0.1 (0.0-0.2) th/mm3 WBC Differential . Differential Comment Auto diff final Sodium 143 (136-145) meq/L Potassium 3.3 L (3.5-5.1) meq/L Chloride 110 H (98-107) meq/L Carbon Dioxide 24.5 (21.0-32.0) meq/L Anion Gap 9 (5-15) meq/L BUN 22 H (7-18) mg/dL Creatinine 0.97 (0.50-1.00) mg/dL Estimated GFR 69 L (>89) mL/min Random Glucose 117 H (74-106) mg/dL Lactic Acid (0.4-2.0) mmol/L Calcium 8.9 (8.5-10.1) mg/dL Magnesium 2.0 (1.5-2.5) mg/dL Total Bilirubin 0.3 (0.2-1.0) mg/dL AST 32 (15-37) U/L ALT 43 (10-53) U/L Alkaline Phosphatase 73 (45-117) U/L Troponin I Less than 0.02 L (0.02-0.05) ng/mL Total Protein 7.5 (6.4-8.2) g/dL Albumin 3.8 (3.4-5.0) g/dL Lipase 87 (73-393) U/L Urine Color (Yellw/Straw) Urine Clarity (Clear) Urine pH (5.0-8.5) Ur Specific [place] (1.002-1.035) Urine Protein (Neg-Trace) mg/dL Urine Glucose (UA) (Negative) mg/dL Urine Ketones (Negative) mg/dL Urine Occult Blood (Negative) Urine Nitrate (Negative) Urine Bilirubin (Negative) Urine Urobilinogen (Less than 2) mg/dL Ur Leukocyte Esterase (Negative) Urine RBC (0-3) /hpf Urine WBC (0-5) /hpf Urine Mucus (Occasional) /lpf Micro UA Comment Ur Microscopic Review Urine Culture Comments Urine Opiates Screen (Neg) Ur Barbiturates Screen (Neg) Ur Amphetamines Screen (Neg) U Benzodiazepines Scrn (Neg) Urine Cocaine Screen (Neg) U Cannabinoids Screen (Neg) Serum Alcohol Less than 3 (0-5) mg/dL 03/31/18 03/31/18 03/31/18 Range/Units 06:41 06:41 06:45 WBC (4.0-11.0) th/mm3 RBC (4.00-5.30) mil/mm3 Hgb (11.6-15.3) gm/dL Hct (35.0-46.0) % MCV (80.0-100.0) fL MCH (27.0-34.0) pg MCHC (32.0-36.0) % RDW (11.6-17.2) % Plt Count (150-450) th/mm3 MPV (7.0-11.0) fL Neut % (Auto) (16.0-70.0) % Lymph % (Auto) (9.0-44.0) % Bay % (Auto) (0.0-8.0) % Eos % (Auto) (0.0-4.0) % Baso % (Auto) (0.0-2.0) % Neut # (Auto) (1.8-7.7) th/mm3 Lymph # (Auto) (1.0-4.8) th/mm3 Bay # (Auto) (0.0-0.9) th/mm3 Eos # (Auto) (0.0-0.4) th/mm3 Baso # (Auto) (0.0-0.2) th/mm3 WBC Differential Differential Comment Sodium (136-145) meq/L Potassium (3.5-5.1) meq/L Chloride (98-107) meq/L Carbon Dioxide (21.0-32.0) meq/L Anion Gap (5-15) meq/L BUN (7-18) mg/dL Creatinine (0.50-1.00) mg/dL Estimated GFR (>89) mL/min Random Glucose (74-106) mg/dL Lactic Acid 0.6 (0.4-2.0) mmol/L Calcium (8.5-10.1) mg/dL Magnesium (1.5-2.5) mg/dL Total Bilirubin (0.2-1.0) mg/dL AST (15-37) U/L ALT (10-53) U/L Alkaline Phosphatase (45-117) U/L Troponin I (0.02-0.05) ng/mL Total Protein (6.4-8.2) g/dL Albumin (3.4-5.0) g/dL Lipase (73-393) U/L Urine Color Straw (Yellw/Straw) Urine Clarity Clear (Clear) Urine pH 6.0 (5.0-8.5) Ur Specific [place] 1.013 (1.002-1.035) Urine Protein Negative (Neg-Trace) mg/dL Urine Glucose (UA) Negative (Negative) mg/dL Urine Ketones Trace H (Negative) mg/dL Urine Occult Blood Negative (Negative) Urine Nitrate Negative (Negative) Urine Bilirubin Negative (Negative) Urine Urobilinogen Less than 2 (Less than 2) mg/dL Ur Leukocyte Esterase Negative (Negative) Urine RBC Less than 1 (0-3) /hpf Urine WBC 1 (0-5) /hpf Urine Mucus Few H (Occasional) /lpf Micro UA Comment Culture not ind Ur Microscopic Review Not Reportable Urine Culture Comments Culture not ind Urine Opiates Screen Pos H (Neg) Ur Barbiturates Screen Neg (Neg) Ur Amphetamines Screen Neg (Neg) U Benzodiazepines Scrn Neg (Neg) Urine Cocaine Screen Pos H (Neg) U Cannabinoids Screen Pos H (Neg) Serum Alcohol (0-5) mg/dL Imaging Data Radiologist's impression: Abdomen/Pelvis CT 03/31/18 04:31 CONCLUSION: 1. Large amount of stool throughout the colon which could indicate constipation. There are areas of liquid stool as well. Nonspecific bowel gas pattern which may represent a mild ileus and/or gastroenteritis. 2. Status post cholecystectomy. Chest X-Ray 03/31/18 04:31 CONCLUSION: No acute cardiopulmonary disease. Head CT 03/31/18 04:42 CONCLUSION: 1. Negative noncontrast head CT. . ECG Data EKG Prior to Arrival: No Attestation: I personally reviewed and interpreted this ECG as follows: (EKG: Normal sinus rhythm rate 78 right axis noted no ST elevation or injury pattern noted no ectopy) Discharge Plan Discharge Disposition Patient Disposition: 30 Still Patient Discharge Condition Condition: Stable Discharge Details Diagnosis: Constipation, Acute hypokalemia, IVDA (intravenous drug abuse) complicating , Leukocytosis Physicians Team ED Provider: Channing Zepeda Primary Care Provider: UNKNOWN, Rxs /Orders / Referrals /Forms Prescriptions: No Action gabapentin 300 mg Capsule 300 mg PO BID RF: 0 clonazepam 0.5 mg Tablet 0.5 mg PO BID RF: 0 Discharge Interventions Interventions: Vital Signs Last Done: 03/31/18 04:35 Status ED Status: With Doctor
[2018-03-31 05:03] LABS: Baso # (Auto) 0.1 th/mm3 (0.0-0.2); Baso % (Auto) 0.2 % (0.0-2.0); Eos # (Auto) 0.1 th/mm3 (0.0-0.4); Eos % (Auto) 0.3 % (0.0-4.0); Hemoglobin 13.9 gm/dL (11.6-15.3); Lymph # (Auto) 2.4 th/mm3 (1.0-4.8); Lymph % (Auto) 8.5 % (9.0-44.0); Mean Corpuscular HGB Conc 32.4 % (32.0-36.0); Mean Corpuscular Hemoglobin 29.2 pg (27.0-34.0); Mean Platelet Volume 10.7 fL (7.0-11.0); Mono # (Auto) 1.3 th/mm3 (0.0-0.9); Mono % (Auto) 4.8 % (0.0-8.0); Neut # (Auto) 23.9 th/mm3 (1.8-7.7); Neut % (Auto) 86.2 % (16.0-70.0); Platelet Count 172 th/mm3 (150-450); Red Blood Count 4.78 mil/mm3 (4.00-5.30); Red Cell Distribution Width 13.9 % (11.6-17.2); White Blood Count 27.7 th/mm3 (4.0-11.0)
--- NOTE | 2018-03-31 05:10 | XR ---
EXAM DATE: 03/31/2018 4:53 AM EST AGE/SEX: 27 years / Female INDICATIONS: Abdominal pain. CLINICAL DATA: This is the patient's initial encounter. Patient reports that signs and symptoms have been present for 1 day and indicates a pain score of 0/10. MEDICAL/SURGICAL HISTORY: Gastroesophageal reflux disease. Crohn's disease. None. COMPARISON: No prior exams available for comparison. FINDINGS: A single AP semierect view of the chest demonstrates the lungs to be symmetrically aerated without ev idence of mass, infiltrate or effusion. The cardiomediastinal contours are unremarkable. Osseous st ructures are intact. Bilateral nipple shadows are present. The patient is status post cholecystectom y. There is no evidence of free air. CONCLUSION: No acute cardiopulmonary disease. Electronically signed by: Steven Camargo MD 03/31/2018 5:09 AM EST
[2018-03-31 05:29] LABS: Alanine Aminotransferase 43 U/L (10-53); Albumin 3.8 g/dL (3.4-5.0); Anion Gap 9 meq/L (5-15); Aspartate Aminotransferase 32 U/L (15-37); Blood Urea Nitrogen 22 mg/dL (7-18); Calcium 8.9 mg/dL (8.5-10.1); Carbon Dioxide 24.5 meq/L (21.0-32.0); Chloride 110 meq/L (98-107); Glomerular Filtration Rate 69 mL/min (>89); Glucose,Random 117 mg/dL (74-106); Lipase 87 U/L (73-393); Potassium 3.3 meq/L (3.5-5.1); Sodium 143 meq/L (136-145)
[2018-03-31 05:33] LABS: Alkaline Phosphatase 73 U/L (45-117); Total Protein 7.5 g/dL (6.4-8.2)
[2018-03-31] MEDS ORDERED: Piperacil/Tazo 4.5 GM Premix 4.5 GM/100 ML BAG IV.SIG ONE (05:50)
[2018-03-31] MEDS ORDERED: Sodium Chlor 0.9% Inj 500 ML IV.SIG SCH (06:00)
--- NOTE | 2018-03-31 06:14 | CT ---
EXAM DATE: 03/31/2018 5:55 AM EST AGE/SEX: 27 years / Female INDICATIONS: Altered mental status. CLINICAL DATA: This is the patient's initial encounter. Patient reports that signs and symptoms have been present for 1 day and indicates a pain score of 0/10. MEDICAL/SURGICAL HISTORY: Crohn's disease. Cholecystectomy. Appendectomy. RADIATION DOSE: 56.35 CTDI (mGy) [place] [facility] [place]09/[place]. . TECHNIQUE: CT of the head without contrast. Using automated exposure control and adjustment of the mA and/or kV according to patient size, radiation dose was kept as low as reasonably achievable to ob tain optimal diagnostic quality images. DICOM format image data is available electronically for revi ew and comparison. FINDINGS: Cerebrum: The ventricles are normal for age. No evidence of midline shift, mass lesion, hemorrhage or acute infarction. No extraaxial fluid collections are seen. Posterior Fossa: The cerebellum and brainstem are intact. The 4th ventricle is midline. The cerebe llopontine angle is unremarkable. Extracranial: The visualized portion of the orbits is intact. Skull: The calvaria is intact. No evidence of skull fracture. CONCLUSION: 1. Negative noncontrast head CT. . Electronically signed by: Steven Camargo MD 03/31/2018 6:13 AM EST
--- NOTE | 2018-03-31 06:17 | CT ---
EXAM DATE: 03/31/2018 6:01 AM EST AGE/SEX: 27 years / Female INDICATIONS: Abdominal pain with vomiting. CLINICAL DATA: This is the patient's initial encounter. Patient reports that signs and symptoms have been present for 1 day and indicates a pain score of 10/10. MEDICAL/SURGICAL HISTORY: Crohn's disease. IV Drug Abuse. Appendectomy. Cholecystectomy. ORAL CONTRAST: No oral contrast ingested. RADIATION DOSE: 6.64 CTDI (mGy) COMPARISON: [facility] – [place], [place] ABDOMEN & PELVIS W CONTRAST, 10/09/2017. . TECHNIQUE: Multiple contiguous axial images were obtained through the abdomen and pelvis following b olus infusion of 80 ml Omnipaque 350 (iohexol) nonionic water-soluble contrast as a single exam dos e. No oral contrast ingested. Using automated exposure control and adjustment of the mA and/or kV ac cording to patient size, radiation dose was kept as low as reasonably achievable to obtain optimal di agnostic quality images. DICOM format image data is available electronically for review and comparis on. FINDINGS: Lower Lungs: The visualized lower lungs are clear. Liver: The liver has a homogeneous density without space-occupying lesion. . The patient is status po st cholecystectomy. The biliary system is stable and remains mildly prominent consistent with postope rative change. Spleen: Homogeneous density without enlargement. Pancreas: Unremarkable without mass or calcification. Kidneys: Normal in size and shape. No evidence of mass or hydronephrosis. Adrenal Glands: Unremarkable. Aorta: The aorta and proximal iliac vessels are grossly unremarkable without aneurysmal dilation. Bowel/Mesentery: No oral contrast was given limiting the sensitivity examination. There is a large a mount of stool throughout the colon. There are several loops of nondilated air-containing small bowel with multiple small air-fluid levels. There is no free air or fluid. Abdominal Wall: Intact. Retroperitoneum: No evidence of adenopathy in the retrocrural, para-aortic, or deep pelvic regions. Bladder: Contours are smooth. Reproductive Organs: No abnormal masses or calcifications seen. Inguinal: The inguinal region is unremarkable without evidence of adenopathy. Bony Structures: Unremarkable. CONCLUSION: 1. Large amount of stool throughout the colon which could indicate constipation. There are areas of liquid stool as well. Nonspecific bowel gas pattern which may represent a mild ileus and/or gastroent eritis. 2. Status post cholecystectomy. Electronically signed by: Steven Camargo MD 03/31/2018 6:16 AM EST
[2018-03-31 07:03] LABS: Bilirubin,Urine Negative (Negative); Clarity,Urine Clear (Clear); Color,Urine Straw (Yellw/Straw); Glucose,Urine (UA) Negative (Negative); Leukocyte Esterase,Urine Negative (Negative); Mucus,Urine Few /lpf (Occasional); Nitrite,Urine Negative (Negative); Specific Gravity,Urine 1.013 (1.002-1.035)
[2018-03-31 07:12] LABS: Amphetamine Screen,Urine Neg (Neg); Barbiturate Screen,Urine Neg (Neg); Cannabinoid Screen,Urine Pos (Neg); Cocaine Screen,Urine Pos (Neg)
[2018-03-31 07:17] LABS: Opiate Screen,Urine Pos (Neg)
[2018-03-31] MEDS ORDERED: Acetaminophen 325 MG Tablet PO PRN (08:13)
[2018-03-31] MEDS ORDERED: Bisacodyl 10 MG Supp RECTAL PRN (08:13)
[2018-03-31] MEDS ORDERED: Sodium Chloride 0.9% 2 ML Flush PRN IV.FLUSH (08:51)
[2018-03-31] MEDS ORDERED: Potassium Bicarbonate 25 MEQ Effervescent Tablet PO ONE (09:00)
[2018-03-31] MEDS: Senna/Docusate Sodium 8.6/50 MG Tablet PO SCH ×2 (09:42→23:56)
[2018-03-31] MEDS: Sodium Chloride 0.9% 2 ML Flush BID IV.FLUSH SCH ×2 (09:42→23:57)
--- NOTE | 2018-03-31 14:55 | P.HP ---
History of Present Illness Primary Care Physician: UNKNOWN Chief Complaint: Abdominal pain History of Present Illness: This is a 27-year-old female with a history of Crohn's disease. She was brought in because of abdominal pain by EMS who found her somnolent with pinpoint pupils. She was administered Narcan with immediate response and improvement of GCS to 15. Patient admits to use of heroin. UDS positive for opiates, marijuana and cocaine. [facility] queried, no records found. Head CT without acute findings. She reports of severe cramping/stabbing/burning generalized abdominal pain worse with movements and meal intake associated with nausea and vomiting. Denies hematemesis. She reports of constipation no bowel movement for 2 days but passing gas. Denies abdominal distention. She also reports of lower back pain. Denies UTI symptoms, fever and chills. CT of the abdomen showed large amount of stool throughout the colon with nonspecific bowel gas pattern which may represent a mild ileus and or gastroenteritis. She was started on bowel regimen and reports she has had a large bowel movement but complains that her abdominal pain is worse. She was advised further hospitalization because of the leukocytosis. Infectious workup unremarkable so far with negative urinalysis and chest x-ray independently reviewed by me with no acute cardiopulmonary disease. All other systems reviewed negative Review of Systems All other systems reviewed negative except as stated in HPI PMFSH - History History Provided By: Patient - Medical History Medical History: Medical History (Last Reviewed 03/31/18 @ 14:48 by Rashi Capellan MD) Crohn's disease (regional enteritis) MDRO (multiple drug resistant organisms) resistance Onset Date: ~03/11/18 Patient denies significant medical history - Surgical History Surgical History: Surgical History (Last Reviewed 03/31/18 @ 14:48 by Rashi Capellan MD) History of cholecystectomy History of tonsillectomy and adenoidectomy Hx of appendectomy - Family History Family History: Family History (Last Updated 03/31/18 @ 14:48 by Rashi Capellan MD) Other Family history of acute myocardial infarction - Social History I have reviewed the patient's Social History: Yes - Tobacco History Second Hand Smoke Exposure: Yes Smoking Status: Never smoker Tobacco Type: Cigarettes - Alcohol History How Often Do You Have a Drink Containing Alcohol: Never - Substance Use History Substance History: Active Abuse - Substance Use Type Heroin Status: Active Route Used: Inhalation, Intravenously Last Used: 03/31/18 - Travel History Recent Travel in the [place] Within the Last 8 Weeks: No Recent Travel Out of the Country Within the Last 8 Weeks: No - Immunization History Tetanus Immunization: <5 Years Medications and Allergies Active Medications: Active Medications Acetaminophen (Tylenol) 650 mg PO Q4H PRN PRN Reason: Temp > 100.4 Al Hydroxide/Mg Hydroxide (Milk Of Magnesia Liq) 30 ml PO Q12H PRN PRN Reason: Mild Constipation Bisacodyl (Dulcolax Supp) 10 mg RECTAL DAILY PRN PRN Reason: SEVERE CONSITIPATION Gabapentin (Neurontin) 300 mg PO BID [facility] Potassium Chloride/Sodium Chloride (Ns + Kcl 20 Meq Inj) 1,000 mls @ 60 mls/hr IV.CONT .[id number] [facility] Last Admin: 03/31/18 09:41 Dose: 60 mls/hr Lactulose (Lactulose Liq) 30 ml PO DAILY PRN PRN Reason: SEVERE CONSITIPATION Ondansetron HCl (Zofran Inj) 4 mg IV.PUSH Q6H PRN PRN Reason: NAUSEA OR VOMITING Last Admin: 03/31/18 09:42 Dose: 4 mg Senna/Docusate Sodium (Mariana-Colace) 1 tab PO BID [facility] Last Admin: 03/31/18 09:42 Dose: 1 tab Sennosides (Senokot) 17.2 mg PO Q12H PRN PRN Reason: Moderate Constipation Sodium Chloride (Ns Flush) 2 ml IV.FLUSH BID [facility] Last Admin: 03/31/18 09:42 Dose: 2 ml Sodium Chloride (Ns Flush) 2 ml IV.FLUSH PRN PRN PRN Reason: FLUSH AFTER USING IV ACCESS Allergies Allergy/AdvReac Type Severity Reaction Status Date / Time No Known Allergies Allergy Verified 03/31/18 04:32 Home Medications Medication Instructions Recorded Confirmed Type gabapentin 300 mg PO BID 03/11/18 03/31/18 History clonazepam 0.5 mg PO BID 03/31/18 03/31/18 History Exam Vital signs: Vital Signs 03/31/18 04:24 03/31/18 04:35 03/31/18 08:00 Temperature 97.9 F 97.9 F 99.2 F Pulse Rate 89 89 84 Respiratory Rate 14 16 16 Blood Pressure 134/81 134/81 127/76 Pulse Oximetry 98 98 100 03/31/18 08:13 03/31/18 13:00 Temperature 99.6 F Pulse Rate 79 Respiratory Rate 16 Blood Pressure 112/66 Pulse Oximetry 100 Intake & Output 03/30/18 03/31/18 03/31/18 18:59 06:59 18:59 Intake Total 1000 / 1000 600 / 600 Balance 1000 / 1000 600 / 600 Weight 48.081 kg Intake: IV 1000 / 1000 600 / 600 Zosyn 4.5 GM Premix 4.5 gm In 100 / 100 100 ml @ 200 mls/hr IV.SIG ONCE ONE Rx#:[id number] NS Inj 1,000 ML @ Wide Open IV. 1000 / 1000 SIG BOLUS ONE Rx#:[id number] Narrative: GENERAL: Well-developed well-nourished who appears to be restless stating she still has abdominal discomfort. SKIN: Warm and dry. HEAD: Atraumatic. Normocephalic. EYES: Pupils equal and round. No scleral icterus. No injection or drainage. ENT: No nasal bleeding or discharge. Mucous membranes pink and moist. NECK: Trachea midline. No JVD. CARDIOVASCULAR: Regular rate and rhythm. RESPIRATORY: No accessory muscle use. Clear to auscultation. Breath sounds equal bilaterally. GASTROINTESTINAL: Abdomen soft, generalized tenderness, nondistended. MUSCULOSKELETAL: Extremities without clubbing, cyanosis, or edema. No obvious deformities. NEUROLOGICAL: Awake and alert. No obvious cranial nerve deficits. Motor grossly within normal limits. Five out of 5 muscle strength in the arms and legs. Normal speech. PSYCHIATRIC: Appropriate mood and affect; insight and judgment normal. Results - Labs CBC & Chem 7: 03/31/18 04:50 03/31/18 04:50 Labs: Laboratory Results - last 24 hr 03/31/18 03/31/18 03/31/18 04:50 04:50 04:50 WBC 27.7 H RBC 4.78 Hgb 13.9 Hct 43.0 MCV 90.0 MCH 29.2 MCHC 32.4 RDW 13.9 Plt Count 172 MPV 10.7 Neut % (Auto) 86.2 H Lymph % (Auto) 8.5 L [place] % (Auto) 4.8 Eos % (Auto) 0.3 Baso % (Auto) 0.2 Neut # (Auto) 23.9 H Lymph # (Auto) 2.4 [place] # (Auto) 1.3 H Eos # (Auto) 0.1 Baso # (Auto) 0.1 WBC Differential . Differential Comment Auto diff final Sodium 143 Potassium 3.3 L Chloride 110 H Carbon Dioxide 24.5 Anion Gap 9 BUN 22 H Creatinine 0.97 Estimated GFR 69 L Random Glucose 117 H Lactic Acid Calcium 8.9 Magnesium 2.0 Total Bilirubin 0.3 AST 32 ALT 43 Alkaline Phosphatase 73 Troponin I Less than 0.02 L Total Protein 7.5 Albumin 3.8 Lipase 87 Urine Color Urine Clarity Urine pH Ur Specific [place] Urine Protein Urine Glucose (UA) Urine Ketones Urine Occult Blood Urine Nitrate Urine Bilirubin Urine Urobilinogen Ur Leukocyte Esterase Urine RBC Urine WBC Urine Mucus Micro UA Comment Ur Microscopic Review Urine Culture Comments Urine Opiates Screen Ur Barbiturates Screen Ur Amphetamines Screen U Benzodiazepines Scrn Urine Cocaine Screen U Cannabinoids Screen Serum Alcohol Less than 3 03/31/18 03/31/18 03/31/18 06:41 06:41 06:45 WBC RBC Hgb Hct MCV MCH MCHC RDW Plt Count MPV Neut % (Auto) Lymph % (Auto) [place] % (Auto) Eos % (Auto) Baso % (Auto) Neut # (Auto) Lymph # (Auto) [place] # (Auto) Eos # (Auto) Baso # (Auto) WBC Differential Differential Comment Sodium Potassium Chloride Carbon Dioxide Anion Gap BUN Creatinine Estimated GFR Random Glucose Lactic Acid 0.6 Calcium Magnesium Total Bilirubin AST ALT Alkaline Phosphatase Troponin I Total Protein Albumin Lipase Urine Color Straw Urine Clarity Clear Urine pH 6.0 Ur Specific [place] 1.013 Urine Protein Negative Urine Glucose (UA) Negative Urine Ketones Trace H Urine Occult Blood Negative Urine Nitrate Negative Urine Bilirubin Negative Urine Urobilinogen Less than 2 Ur Leukocyte Esterase Negative Urine RBC Less than 1 Urine WBC 1 Urine Mucus Few H Micro UA Comment Culture not ind Ur Microscopic Review Not Reportable Urine Culture Comments Culture not ind Urine Opiates Screen Pos H Ur Barbiturates Screen Neg Ur Amphetamines Screen Neg U Benzodiazepines Scrn Neg Urine Cocaine Screen Pos H U Cannabinoids Screen Pos H Serum Alcohol - Imaging Impressions Abdomen/Pelvis CT 03/31/18 04:31 CONCLUSION: 1. Large amount of stool throughout the colon which could indicate constipation. There are areas of liquid stool as well. Nonspecific bowel gas pattern which may represent a mild ileus and/or gastroenteritis. 2. Status post cholecystectomy. Chest X-Ray 03/31/18 04:31 CONCLUSION: No acute cardiopulmonary disease. Head CT 03/31/18 04:42 CONCLUSION: 1. Negative noncontrast head CT. . Caprini VTE Risk Assessment Caprini VTE Risk Assessment: No/Low Risk (score <= 1) Caprini Risk Assessment Model: Point Value = 1 Point Value = 2 Point Value = 3 Point Value = 5 Age 41-60 Minor surgery BMI > 25 kg/m2 Swollen legs Varicose veins or History of unexplained or recurrent spontaneous Oral contraceptives or hormone replacement Sepsis (< 1 month) Serious lung disease, including pneumonia (< 1 month) Abnormal pulmonary function Acute myocardial infarction Congestive heart failure (< 1 month) History of inflammatory bowel disease Medical patient at bed rest Age 61-74 Arthroscopic surgery Major open surgery (> 45 min) Laparoscopic surgery (> 45 min) Malignancy Confined to bed (> 72 hours) Immobilizing plaster cast Central venous access Age >= 75 History of VTE Family history of VTE Factor V Leiden Prothrombin [id number] Lupus anticoagulant Anticardiolipin antibodies Elevated serum homocysteine Heparin-induced thrombocytopenia Other congenital or acquired thrombophilia Stroke (< 1 month) Elective arthroplasty Hip, pelvis, or leg fracture Acute spinal cord injury (< 1 month) Prophylaxis Regimen: Total Risk Factor Score Risk Level Prophylaxis Regimen 0-1 Low Early ambulation 2 Moderate Order ONE of the following: *Sequential Compression Device (SCD) *Heparin 5000 units SQ BID 3-4 Higher Order ONE of the following medications: *Heparin 5000 units SQ TID *Enoxaparin/Lovenox 40 mg SQ daily (WT < 150 kg, CrCl > 30 mL/min) *Enoxaparin/Lovenox 30 mg SQ daily (WT < 150 kg, CrCl > 10-29 mL/min) *Enoxaparin/Lovenox 30 mg SQ BID (WT < 150 kg, CrCl > 30 mL/min) AND/OR *Sequential Compression Device (SCD) 5 or more Highest Order ONE of the following medications: *Heparin 5000 units SQ TID (Preferred with Epidurals) *Enoxaparin/Lovenox 40 mg SQ daily (WT < 150 kg, CrCl > 30 mL/min) *Enoxaparin/Lovenox 30 mg SQ daily (WT < 150 kg, CrCl > 10-29 mL/min) *Enoxaparin/Lovenox 30 mg SQ BID (WT < 150 kg, CrCl > 30 mL/min) AND *Sequential Compression Device (SCD) Assessment and Plan - Plan This is a 27-year-old female with a history of Crohn's disease. She presented because of abdominal pain, nausea and vomiting. Abdominal CT shows constipation and possible ileus Abdominal pain secondary to constipation and or ileus. Continue IV hydration, bowel regimen consider Relistor. Advance diet as tolerated Toxic encephalopathy. Head CT unremarkable. UDS positive for opiates, marijuana and cocaine. Patient has been counseled Leukocytosis. Infectious workup unremarkable so far with negative urinalysis and chest x-ray. Lactic acid within normal limits. Blood cultures ordered and will monitor results. Repeat CBC in the morning DVT prophylaxis, patient is ambulatory Discharge Planning: Possible discharge in 1-2 days
[2018-03-31] MEDS ORDERED: Haloperidol Inj 5 MG/ML Ampul IV.PUSH PRN (17:19)
--- NOTE | 2018-03-31 17:42 | ECG ---
Date Performed: 03/31/2018 Time Performed: 04:52:55 PTAGE: 27 years EKG: Sinus rhythm BORDERLINE RIGHT AXIS DEVIATION BORDERLINE ECG NO PREVIOUS TRACING DOCTOR: Anselmo Garza Interpretating Date/Time 03/31/2018 17:42:08
[2018-03-31] MEDS: Gabapentin 300 MG Capsule PO SCH (22:02)
[2018-03-31] MEDS: LORazepam 1 MG Tablet PO PRN (22:02)
[2018-03-31] MEDS ORDERED: Ketorolac Inj 30 MG/ML (IVP) Vial IV.PUSH ONE (22:28)
[2018-04-01 07:34] VITALS: BP 117/74; RESP 18; TEMP 98.5; O2SAT 100
[2018-04-01 07:44] LABS: Baso % (Auto) 0.1 % (0.0-2.0); Lymph # (Auto) 1.8 th/mm3 (1.0-4.8); Lymph % (Auto) 9.9 % (9.0-44.0); Mean Corpuscular HGB Conc 34.2 % (32.0-36.0); Mean Corpuscular Hemoglobin 30.3 pg (27.0-34.0); Mean Corpuscular Volume 88.8 fL (80.0-100.0); Mono # (Auto) 0.6 th/mm3 (0.0-0.9); Mono % (Auto) 3.5 % (0.0-8.0); Neut # (Auto) 15.9 th/mm3 (1.8-7.7); Neut % (Auto) 86.5 % (16.0-70.0); Platelet Count 153 th/mm3 (150-450); Red Blood Count 4.28 mil/mm3 (4.00-5.30); Red Cell Distribution Width 13.7 % (11.6-17.2); White Blood Count 18.4 th/mm3 (4.0-11.0)
[2018-04-01] MEDS: Gabapentin 300 MG Capsule PO SCH (08:40)
[2018-04-01] MEDS: LORazepam 1 MG Tablet PO PRN (08:40)
[2018-04-01] MEDS: Senna/Docusate Sodium 8.6/50 MG Tablet PO SCH (08:40)
[2018-04-01] MEDS: Sodium Chloride 0.9% 2 ML Flush BID IV.FLUSH SCH (08:40)
--- NOTE | 2018-04-01 08:58 | P.PN ---
Subjective Interval history: Follow-up constipation. She has been stooling. Tolerating diet complains of slight nausea. Denies hallucinations. States she will follow-up with detox was in rehab before. Physical Exam Vital signs: Vital Signs 03/31/18 13:00 03/31/18 16:00 03/31/18 20:00 Temperature 99.6 F 99.3 F 98.9 F Pulse Rate 79 81 83 Respiratory Rate 16 16 17 Blood Pressure 112/66 120/72 115/71 Pulse Oximetry 98 100 04/01/18 00:00 04/01/18 03:40 04/01/18 04:25 Temperature 97.8 F 98.1 F Pulse Rate 78 82 73 Respiratory Rate 17 16 Blood Pressure 119/70 116/65 Pulse Oximetry 100 99 04/01/18 07:31 Temperature 98.5 F Pulse Rate 100 H Respiratory Rate 18 Blood Pressure 117/74 Pulse Oximetry 100 Intake & Output 03/31/18 04/01/18 04/01/18 18:59 06:59 18:59 Intake Total 800 / 800 950 / 950 30 / 30 Balance 800 / 800 950 / 950 30 / 30 Intake: IV 600 / 600 950 / 950 NS + KCl 20 mEq Inj 1,000 ML @ 950 / 950 60 mls/hr IV.CONT .[id number] [facility] Rx#:[id number] Zosyn 4.5 GM Premix 4.5 gm In 100 / 100 100 ml @ 200 mls/hr IV.SIG ONCE ONE Rx#:[id number] Oral 200 / 200 30 / 30 Other: # Voids 1 Narrative: GENERAL: Well-developed well-nourished in no distress SKIN: Warm and dry. CARDIOVASCULAR: Regular rate and rhythm. RESPIRATORY: No accessory muscle use. Clear to auscultation. Breath sounds equal bilaterally. GASTROINTESTINAL: Abdomen soft, nontender, nondistended. MUSCULOSKELETAL: Extremities without clubbing, cyanosis, or edema. No obvious deformities. NEUROLOGICAL: Awake and alert. No obvious cranial nerve deficits. Motor grossly within normal limits. Five out of 5 muscle strength in the arms and legs. Normal speech. Positive tremors PSYCHIATRIC: Appropriate mood and affect; insight and judgment normal. No hallucinations Results - Labs CBC & Chem 7: 04/01/18 06:41 03/31/18 04:50 Laboratory Results - last 24 hr 04/01/18 06:41 WBC 18.4 H RBC 4.28 Hgb 13.0 Hct 38.0 MCV 88.8 MCH 30.3 MCHC 34.2 RDW 13.7 Plt Count 153 MPV 11.0 Neut % (Auto) 86.5 H Lymph % (Auto) 9.9 [place] % (Auto) 3.5 Eos % (Auto) 0.0 Baso % (Auto) 0.1 Neut # (Auto) 15.9 H Lymph # (Auto) 1.8 [place] # (Auto) 0.6 Eos # (Auto) 0.0 Baso # (Auto) 0.0 WBC Differential . Differential Comment Auto diff final - Imaging ITS Impressions Abdomen/Pelvis CT 03/31/18 04:31 CONCLUSION: 1. Large amount of stool throughout the colon which could indicate constipation. There are areas of liquid stool as well. Nonspecific bowel gas pattern which may represent a mild ileus and/or gastroenteritis. 2. Status post cholecystectomy. Chest X-Ray 03/31/18 04:31 CONCLUSION: No acute cardiopulmonary disease. Head CT 03/31/18 04:42 CONCLUSION: 1. Negative noncontrast head CT. . - Procedures none Assessment and Plan - Plan This is a 27-year-old female with a history of Crohn's disease. She presented because of abdominal pain, nausea and vomiting. Abdominal CT shows constipation and possible ileus Abdominal pain secondary to constipation and or ileus. Improved tolerating diet. She is also stooling. On IV hydration and bowel regimen Toxic encephalopathy. Head CT unremarkable. UDS positive for opiates, marijuana and cocaine. Resolved. Patient has been counseled Leukocytosis. Infectious workup unremarkable so far with negative urinalysis and chest x-ray. Lactic acid within normal limits. Blood cultures negative to date. This is improving. Likely secondary to ileus DVT prophylaxis, patient is ambulatory Discharge Planning: Discharge patient to home Condition on discharge: Improved Regular Diet as tolerated Ad Char activity Rx written: Mariana-Colace Follow-up with primary care physician and [facility], consulted case management
[2018-04-01] MEDS ORDERED: Multivitamin/Minerals Therapeutic Tablet PO SCH (09:00)
[2018-04-01] MEDS ORDERED: Folic Acid 1 MG Tablet PO SCH (09:00)
[2018-04-01 10:01] VITALS: PULSE 86
== END 2018-04-01 12:00 | disposition home or self-care (01) ==
LOC: NEPC 04:21 → NEDA 04:21 → NEPGCP 13:52
PROVIDERS: ADMIT Internal Medicine; ATTEND Internal Medicine
DX: R10.9 Unspecified abdominal pain; F11.10 Opioid abuse, uncomplicated; E87.6 Hypokalemia; D72.829 Elevated white blood cell count, unspecified; Z79.899 Other long term (current) drug therapy; G92 Toxic encephalopathy; K50.90 Crohn's disease, unspecified, without complications; Z77.22 Contact with and (suspected) exposure to environmental tobacco smoke (acute) (chronic); M54.5 Low back pain